=== PATIENT | female | born 1950 | race Caucasian/White ===

== ENCOUNTER → 2017-01-06 | Outpatient (CLI) | payer OTHER, MEDICARE ==
[~2017-01-06] MED LIST: ADVIN25050 PO; ALBU1AER9 INH; ASTN; ATV/1 SL; BUPR-267 PO; CARV25TA2 PO; CINN1CAP2 PO; LISI-461 PO; MOME50SP5 NAE; MRLP17 PO; ZNTT/150 PO
[2017-01-06 12:34] LABS: HEMATOCRIT 42.9 % (37-47); MEAN CELL VOLUME 93.1 fL (80-100); MEAN CORPUSCULAR HEMOGLOBIN 31.7 pg (25-34); MEAN PLATELET VOLUME 10.4 fL (7.4-10.4); PLATELET COUNT 285 K/uL (130-400); RED BLOOD COUNT 4.61 M/uL (4.2-5.4); WHITE BLOOD COUNT 6.81 K/uL (4.8-10.8)
[2017-01-06 14:22] LABS: ALT/SGPT 28 U/L (12-78); AMYLASE 34 U/L (25-115); AST/SGOT 25 U/L (15-37); BLOOD UREA NITROGEN 10 mg/dl (7-18); BUN/CREATININE RATIO 11.1 (10-20); CALCIUM 9.7 mg/dl (8.5-10.1); CARBON DIOXIDE 30 mmol/L (21-32); CHLORIDE 99 mmol/L (98-107); CREATININE 0.94 mg/dl (0.60-1.20); GLUCOSE 105 mg/dl (70-99); POTASSIUM 4.3 mmol/L (3.5-5.1); SODIUM 134 mmol/L (136-145)
[2017-01-06 14:24] LABS: ALB/GLOB RATIO 1.1 (0.9-2); ALKALINE PHOSPHATASE 97 U/L (45-117)
== END | disposition home or self-care (01) ==
LOC: C.LAB1850 10:57
PROVIDERS: ATTEND Physician Assistant
DX: K85.90 Acute pancreatitis without necrosis or infection, unspecified (principal)

== ENCOUNTER → 2017-12-31 | Outpatient (CLI) | payer OTHER, MEDICARE ==
[~2017-12-31] MED LIST changes: +ALBU18002 INH; -ALBU1AER9 INH; +ATOR-22 PO; +CARI250T PO; +GLC/500 PO; +HYDR-5688 PO; +HYDR25TA4 PO; -LISI-461 PO; +LISI-726 PO; -MOME50SP5 NAE; +MOME6000 NAE; +PRLSR20 PO; -ZNTT/150 PO
[2017-12-31 16:54] LABS: ALBUMIN 3.5 gm/dl (3.4-5.0); ALKALINE PHOSPHATASE 129 U/L (45-117); ALT/SGPT 26 U/L (12-78); AST/SGOT 19 U/L (15-37); BLOOD UREA NITROGEN 14 mg/dl (7-18); CALCIUM 9.2 mg/dl (8.5-10.1); CARBON DIOXIDE 27 mmol/L (21-32); CREATININE 0.92 mg/dl (0.60-1.20); GLUCOSE 106 mg/dl (70-99); LIPASE 118 U/L (73-393); SODIUM 127 mmol/L (136-145); TOTAL PROTEIN 7.2 gm/dl (6.4-8.2)
== END | disposition home or self-care (01) ==
LOC: C.LAB1850 15:07
PROVIDERS: ATTEND Internal Medicine
DX: K85.90 Acute pancreatitis without necrosis or infection, unspecified (principal)

== ENCOUNTER 2018-01-14 12:11 | Emergency (ER) | payer OTHER, MEDICARE ==
[~2018-01-14] VITALS: Ht 162.6 cm; Wt 75.1 kg
[2018-01-14 12:13] VITALS: TEMP 36.5; Ht 162.6 cm; Wt 75.1 kg
--- NOTE | 2018-01-14 12:39 | EMERGENCY ROOM VISIT NOTE ---
History Report prepared by Foster: Valerie Taylor Under the Supervision of: Dr. Tomas Bajwa M.D. First contact with patient: 12:30 Chief Complaint: SHORTNESS OF BREATH Stated Complaint: SOB, FLUID IN LEGS History of Present Illness The patient is a 67 year old female who presents to the Emergency Room with complaints of persistent bilateral leg swelling and chest discomfort that started over 2 weeks ago. The patient describes her chest discomfort as pressure and states it worsens with exertion. She states she had just got to [place] for vacation when her symptoms started but did not want to see a doctor. She denies abdominal pain. She states she has a history of high blood pressure. She notes she had a heart ablation in 1995. She reports she had a heart catheterization "a long time ago." Source of History: patient Onset: over 2 weeks ago Position: leg (bilateral) Quality: pressure Timing: other (persistent) Modifying Factors (Worsening): exertion Associated Symptoms: No abdominal pain Review of Systems See HPI for pertinent positives & negatives. A total of 10 systems reviewed and were otherwise negative. Past Medical & Surgical Medical Problems: (1) Acute pancreatitis (2) Basal cell carcinoma of face (3) Benign hypertension (4) DM (diabetes mellitus) (5) Gastroesophageal reflux disease (6) Pancreatitis (7) Percutaneous transluminal ablation of atrioventricular node (8) Ssius-Kpnkfshhp-Nfvep pattern Surgical Problems: (1) Appendectomy (2) C6-C7 fusion (3) Cholecystectomy (4) History of hysterectomy (5) Hysterectomy Family History Diabetes mellitus Heart disease Social History Smoking Status: Never Smoker Alcohol Use: none Marital Status: Housing Status: lives with family Occupation Status: retired Current/Historical Medications Scheduled Atorvastatin (Lipitor), 20 MG PO DAILY Bupropion Hcl (Bupropion Hcl Er), 150 MG PO DAILY Carvedilol (Coreg), 12.5 MG PO BID Cinnamon (Cinnamon), 1,000 MG PO DAILY Hydrochlorothiazide (Hctz), 25 MG PO DAILY Lisinopril (Lisinopril), 20 MG PO DAILY Metformin Hcl (Glucophage), 500 MG PO QAM Metformin Hcl (Glucophage), 1,000 MG PO QPM Mometasone Furoate (Nasal) (Mometasone Furoate), 2 SPRAYS SINDY DAILY Omeprazole (Prilosec), 20 MG PO HS Polyethylene (Miralax), 17 GM PO UD Scheduled PRN Albuterol Sulfate (Proair Respiclick), 2 PUFFS INH Q4H PRN for SOB/Wheezing Azelastine Hcl (Astelin Nasal [place]), 2 SPRAYS NA BID PRN Fluticasone Prop/Salmeterol (Advair Diskus 250-50 Mcg/Dose), 1 PUFF PO Q12 PRN for HUMIDITY Lorazepam (Ativan), 0.5 MG SL HS PRN for Insomnia Allergies Coded Allergies: Cephalosporins (Verified Allergy, Unknown, KEFLEX, 01/14/18) Oxycodone (Verified Adverse Reaction, Mild, ?PERCODAN -- HALLUCINATIONS, ) Replaces PERCODAN Pseudoephedrine (Verified Adverse Reaction, Mild, RAPID HEART, 01/14/18) Physical Exam Vital Signs Date Time Temp Pulse Resp B/P (MAP) Pulse Ox O2 Delivery O2 Flow Rate FiO2 01/14/18 16:31 77 16 160/106 97 01/14/18 16:08 68 01/14/18 15:30 77 20 166/103 98 Room Air 01/14/18 14:28 69 16 136/111 100 Room Air 01/14/18 12:13 36.5 67 18 178/108 100 Room Air Physical Exam GENERAL: Awake, alert, well-appearing, in no acute distress HENT: Normocephalic, atraumatic. Oropharynx unremarkable. EYES: Normal conjunctiva. Sclera non-icteric. NECK: Supple. No nuchal rigidity. FROM. No JVD. RESPIRATORY: Clear to auscultation. CARDIAC: Regular rate, normal rhythm. Extremities warm and well perfused. Pulses equal. ABDOMEN: Soft, non-distended. No tenderness to palpation. No rebound or guarding. No masses. RECTAL: Deferred. MUSCULOSKELETAL: Chest examination reveals no tenderness. The back is symmetrical on inspection without obvious abnormality. There is no CVA tenderness to palpation. No joint edema. LOWER EXTREMITIES: Calves are equal size bilaterally and non-tender. No edema. No discoloration. NEURO: Normal sensorium. No sensory or motor deficits noted. SKIN: No rash or jaundice noted. Medical Decision & Procedures ER Provider Diagnostic Interpretation: Radiology results as stated below per my review and radiologist interpretation: CHEST ONE VIEW PORTABLE CLINICAL HISTORY: CHEST PAIN dyspnea COMPARISON STUDY: 2018 FINDINGS: The bones soft tissues and hemidiaphragms are normal. The cardiomediastinal silhouette is normal. The lungs are clear. The pulmonary vasculature is normal. IMPRESSION: Negative chest. The above report was generated using voice recognition software. It may contain grammatical, syntax or spelling errors. Electronically signed by: Oscar Crow M.D. 01/14/2018 1:04 PM Dictated Date/Time: 01/14/2018 1:03 PM Laboratory Results 01/14/18 12:35 Red Blood Count 3.95, Mean Corpuscular Volume 93.2, Mean Corpuscular Hemoglobin 31.9, Mean Corpuscular Hemoglobin Concent 34.2, Mean Platelet Volume 9.5, Neutrophils (%) (Auto) 55.6, Lymphocytes (%) (Auto) 29.1, Monocytes (%) (Auto) 10.4, Eosinophils (%) (Auto) 4.3, Basophils (%) (Auto) 0.3, Neutrophils # (Auto ) 4.18, Lymphocytes # (Auto) 2.18, Monocytes # (Auto) 0.78, Eosinophils # (Auto ) 0.32, Basophils # (Auto) 0.02 01/14/18 12:35 Test 01/14/18 12:35 01/14/18 12:40 01/14/18 12:55 01/14/18 14:08 White Blood Count 7.50 K/uL (4.8-10.8) Red Blood Count 3.95 M/uL (4.2-5.4) Hemoglobin 12.6 g/dL (12.0-16.0) Hematocrit 36.8 % (37-47) Mean Corpuscular Volume 93.2 fL (80-100) Mean Corpuscular Hemoglobin 31.9 pg (25-34) Mean Corpuscular Hemoglobin Concent 34.2 g/dl (32-36) Platelet Count 282 K/uL (130-400) Mean Platelet Volume 9.5 fL (7.4-10.4) Neutrophils (%) (Auto) 55.6 % Lymphocytes (%) (Auto) 29.1 % Monocytes (%) (Auto) 10.4 % Eosinophils (%) (Auto) 4.3 % Basophils (%) (Auto) 0.3 % Neutrophils # (Auto) 4.18 K/uL (1.4-6.5) Lymphocytes # (Auto) 2.18 K/uL (1.2-3.4) Monocytes # (Auto) 0.78 K/uL (0.11-0.59) Eosinophils # (Auto) 0.32 K/uL (0-0.5) Basophils # (Auto) 0.02 K/uL (0-0.2) RDW Standard Deviation 45.9 fL (36.4-46.3) RDW Coefficient of Variation 13.6 % (11.5-14.5) Immature Granulocyte % (Auto) 0.3 % Immature Granulocyte # (Auto) 0.02 K/uL (0.00-0.02) Anion Gap 8.0 mmol/L (3-11) Est Creatinine Clear Calc Drug Dose 65.3 ml/min Estimated GFR () 84.6 Estimated GFR (Non- 73.0 BUN/Creatinine Ratio 15.6 (10-20) Calcium Level 8.9 mg/dl (8.5-10.1) Total Bilirubin 0.6 mg/dl (0.2-1) Direct Bilirubin 0.2 mg/dl (0-0.2) Aspartate Amino Transf (AST/SGOT) 27 U/L (15-37) Alanine Aminotransferase (ALT/SGPT) 42 U/L (12-78) Alkaline Phosphatase 97 U/L (45-117) Total Creatine Kinase 109 U/L (26-192) Creatine Kinase MB 1.5 ng/ml (0.5-3.6) Creatine Kinase MB Ratio 1.4 (0-3.0) Pro-B-Type Natriuretic Peptide 682 pg/ml (0-900) Total Protein 7.2 gm/dl (6.4-8.2) Albumin 3.6 gm/dl (3.4-5.0) Lipase 97 U/L (73-393) Urine Color YELLOW Urine Appearance CLEAR (CLEAR) Urine pH 7.5 (4.5-7.5) Urine Specific [place] 1.006 (1.000-1.030) Urine Protein NEG (NEG) Urine Glucose (UA) NEG (NEG) Urine Ketones NEG (NEG) Urine Occult Blood NEG (NEG) Urine Nitrite NEG (NEG) Urine Bilirubin NEG (NEG) Urine Urobilinogen NEG (NEG) Urine Leukocyte Esterase NEG (NEG) Bedside D-Dimer > 450 ng/mlFEU (0-450) Troponin I < 0.015 ng/ml (0-0.045) Labs reviewed by ED physician. Medications Administered Medications (Trade) Dose Ordered Sig/Benjamin Route Start Time Stop Time Status Last Admin Dose Admin Potassium Chloride (Klor-Con Tab) 40 meq NOW STAT PO 01/14/18 13:11 01/14/18 13:12 DC 01/14/18 14:10 40 MEQ Potassium Chloride (Klor-Con Tab) 40 meq NOW STAT PO 01/14/18 13:33 01/14/18 13:34 DC 01/14/18 13:33 40 MEQ ECG Per My Interpretation Indication: chest pain Rate (beats per minute): 70 Rhythm: sinus rhythm (with premature supraventricular complex) Findings: other (no ST elevation or depression) ED Course 1230: Past medical records reviewed. The patient was evaluated in room B10. A complete history and physical examination was performed. Medical Decision Differential diagnosis: Etiologies such as cardiac ischemia, aortic dissection, pulmonary embolism, pneumonia, pneumothorax, musculoskeletal, infections, pericarditis, myocarditis , esophageal rupture, gastrointestinal, as well as others were entertained. This is a 68-year-old female who presents emergency department complaining of chest pain that has been going on for the past 2 weeks any time the patient exerts herself. Serial EKGs as well as serial troponins were obtained in the emergency department and were found to be within normal limits with no changes. The patient was given potassium here in the emergency department. I discussed the patient's case with Dr. Chase to get the patient an outpatient stress test. The patient does not appear to be volume overloaded on chest x- ray. Her ultrasounds do not show any evidence of DVTs. Strongly suggested compression stockings for the patient's bilateral leg swelling. Patient will follow up here in the hospital tomorrow for a stress test. She agreed to no strenuous activity until that stress test. Medication Reconcilliation Current Medication List: was personally reviewed by me Impression Primary Impression: Chest pain Scribe Attestation The scribe's documentation has been prepared under my direction and personally reviewed by me in its entirety. I confirm that the note above accurately reflects all work, treatment, procedures, and medical decision making performed by me. Departure Information Dispostion Home / Self-Care Referrals Pro,Nasreen Valiente.D. (PCP) Patient Instructions My [facility] Problem Qualifiers Primary Impression: Chest pain Chest pain type: unspecified Qualified Codes: R07.9 - Chest pain, unspecified
[2018-01-14 12:46] LABS: BASO % 0.3 %; BASO ABS # 0.02 K/uL (0-0.2); EOS % 4.3 %; EOS ABS # 0.32 K/uL (0-0.5); HEMATOCRIT 36.8 % (37-47); HEMOGLOBIN 12.6 g/dL (12.0-16.0); IG# 0.02 K/uL (0.00-0.02); LYMPH % 29.1 %; LYMPH ABS # 2.18 K/uL (1.2-3.4); MEAN CELL VOLUME 93.2 fL (80-100); MEAN CORPUSCULAR HEMOGLOBIN 31.9 pg (25-34); MEAN CORPUSCULAR HGB CONC 34.2 g/dl (32-36); MEAN PLATELET VOLUME 9.5 fL (7.4-10.4); MONO % 10.4 %; MONO ABS # 0.78 K/uL (0.11-0.59); NEUT % 55.6 %; NEUT ABS # 4.18 K/uL (1.4-6.5); PLATELET COUNT 282 K/uL (130-400); RED CELL DISTRIBUTION WIDTH CV 13.6 % (11.5-14.5); RED CELL DISTRIBUTION WIDTH SD 45.9 fL (36.4-46.3)
--- NOTE | 2018-01-14 13:05 | DIAGNOSTIC IMAGING REPORT ---
CHEST ONE VIEW PORTABLE CLINICAL HISTORY: CHEST PAIN dyspnea COMPARISON STUDY: 2018 FINDINGS: The bones soft tissues and hemidiaphragms are normal. The cardiomediastinal silhouette is normal. The lungs are clear. The pulmonary vasculature is normal. IMPRESSION: Negative chest. The above report was generated using voice recognition software. It may contain grammatical, syntax or spelling errors. Electronically signed by: Oscar Crow M.D. 01/14/2018 1:04 PM Dictated Date/Time: 01/14/2018 1:03 PM
[2018-01-14 13:07] LABS: ALBUMIN 3.6 gm/dl (3.4-5.0); ALKALINE PHOSPHATASE 97 U/L (45-117); ALT/SGPT 42 U/L (12-78); AST/SGOT 27 U/L (15-37); BLOOD UREA NITROGEN 13 mg/dl (7-18); CALCIUM 8.9 mg/dl (8.5-10.1); CARBON DIOXIDE 29 mmol/L (21-32); CKMB 1.5 ng/ml (0.5-3.6); CREATININE 0.83 mg/dl (0.60-1.20); GLUCOSE 104 mg/dl (70-99); LIPASE 97 U/L (73-393); POTASSIUM 3.2 mmol/L (3.5-5.1); SODIUM 133 mmol/L (136-145); TOTAL PROTEIN 7.2 gm/dl (6.4-8.2)
[2018-01-14] MEDS ORDERED: GLC/500 PO (13:09)
[2018-01-14] MEDS ORDERED: POTASSIUM CHLORIDE 20 MEQ TABCR PO STA ×2 (13:11→13:33)
[2018-01-14] MEDS ORDERED: OPTIRAY 320 IV PRN (13:15)
--- NOTE | 2018-01-14 14:01 | DIAGNOSTIC IMAGING REPORT ---
BILATERAL LOWER EXTREMITY VENOUS DOPPLER CLINICAL HISTORY: Bilateral lower extremity swelling. COMPARISON STUDY: No previous studies for comparison. TECHNIQUE: Sonography of the deep venous system of the bilateral lower extremities was performed. Compression and augmentation were evaluated. FINDINGS: The bilateral common femoral, superficial femoral and popliteal veins were compressible. Augmentation was normal. Flow was shown within the deep calf vessels. IMPRESSION: No evidence of deep venous thrombus within the bilateral lower extremities. Electronically signed by: Faisal Ferreira M.D. 01/14/2018 1:59 PM Dictated Date/Time: 01/14/2018 1:53 PM
--- NOTE | 2018-01-14 15:42 | DIAGNOSTIC IMAGING REPORT ---
(CHEST FOR PE) ANGIO WITH CT DOSE: 252.75 mGy.cm HISTORY: Dyspnea chest pain TECHNIQUE: Multiaxial CT images of the chest were performed following the intravenous administration of contrast to evaluate the pulmonary arteries. Maximal intensity projection images were also obtained. A dose lowering technique was utilized adhering to the principles of ALARA. COMPARISON STUDY: None. FINDINGS: There is a normal caliber thoracic aorta with no evidence for dissection. There is no evidence for pulmonary embolus. No pleural effusions. No pneumothorax. The liver and spleen are unremarkable. No mediastinal or hilar lymphadenopathy. The central airways are patent. The lungs are clear. IMPRESSION: No evidence for pulmonary embolus. Slight bibasilar interstitial prominence. The above report was generated using voice recognition software. It may contain grammatical, syntax or spelling errors. Electronically signed by: Oscar Crow M.D. 01/14/2018 3:40 PM Dictated Date/Time: 01/14/2018 3:36 PM
[2018-01-14 16:31] VITALS: BP 160/106; PULSE 77; O2SAT 97
== END 2018-01-14 16:32 | disposition home or self-care (01) ==
LOC: C.EDB 12:12
DX: R07.9 Chest pain, unspecified (principal); I10 Essential (primary) hypertension; E11.9 Type 2 diabetes mellitus without complications; K21.9 Gastro-esophageal reflux disease without esophagitis; I45.6 Pre-excitation syndrome; Z88.8 Allergy status to other drugs, medicaments and biological substances; Z88.5 Allergy status to narcotic agent

== ENCOUNTER → 2018-01-15 | Outpatient (CLI) | payer OTHER, MEDICARE ==
[~2018-01-15] MED LIST changes: -CARI250T PO; -HYDR-5688 PO
--- NOTE | 2018-01-15 16:29 | EXERCISE STRESS ECHO ---
*NOTICE TO RECEIVING DEMOCRAT AGENCY This information is strictly Confidential and protected under [place] law. [place] law prohibits you from making any further disclosure of this information unless further disclosure is expressly permitted by the written consent of the person to whom it pertains or is authorized by law. A general authorization for the release of medical or other information is not sufficient for this purpose. Hospital accepts no responsibility if the information is made available to any other person, INCLUDING THE PATIENT. Interpretation Summary * Name: THEE HDEZ Study Date: 01/15/2018 08:58 AM BP: 148/96 mmHg * Patient Location: [facility] HR: 70 * : 1950 (M/d/yyyy) Gender: Female Height: 64 in * Age: 68 yrs Ethnicity: CA Weight: 161 lb * Ordering Physician: TYLER PEÑA MD * Performed By: Wanda Mckeon RCS * * Reason For Study: CHEST PAIN * BSA: 1.8 m2 * -- Conclusions -- * Left ventricular systolic function is normal. * Normal diastolic function * Mild aortic regurgitation. * There is mild to moderate mitral regurgitation. * Right ventricular systolic pressure is elevated at 30-40mmHg. * Normal stress echocardiogram without evidence of inducible ischemia * Hypertensive response to exercise Procedure Details * ECHOEX, CPT #[id number] * ECHO COLOR FLOW, CPT #[id number] * ECHO DOPPLER, CPT #[id number] Left Ventricular Findings with Stress * Normal stress echocardiogram without evidence of inducible ischemia Hypertensive response to exercise Left Ventricle * The left ventricle is normal in size. * There is normal left ventricular wall thickness. * Left ventricular systolic function is normal. * Ejection Fraction = 55-60%. * Normal diastolic function * The left ventricular wall motion is normal at rest. Right Ventricle * The right ventricle is normal in size and function. Atria * The left atrial size is normal. * Right atrial size is normal. Mitral Valve * The mitral valve leaflets appear thickened, but open well. * There is mild to moderate mitral regurgitation. * The mitral regurgitant jet is posteriorly directed, which is consistent with anterior leaflet pathology. Tricuspid Valve * The tricuspid valve is not well visualized, but is grossly normal. * There is trace tricuspid regurgitation. * Right ventricular systolic pressure is elevated at 30-40mmHg. Aortic Valve * The aortic valve is normal in structure and function. * The aortic valve is trileaflet. * No hemodynamically significant valvular aortic stenosis. * Mild aortic regurgitation. Pulmonic Valve * The pulmonic valve is not well visualized. Pericardium * There is no pericardial effusion. Stress Parameters * Normal baseline electrocardiogram. * Stress ECG: No ST changes. No arrhythmias. * The stress portion of this study was personally supervised by the undersigned interpreting physician. * Rest heart rate was '70' BPM. * Rest blood pressure was '148/96' * Maximum heart rate achieved was 151 bpm. * Maximum heart rate was 99 % of maximum age-predicted heart rate. * Maximum blood pressure was '207/116' * Total exercise time was '06:00' * Maximum exercise MET level achieved was '7.00' METS * Maximum treadmill speed was '2.50' miles per hour. * Maximum treadmill elevation was '12.00'% grade. Left Ventricular Findings with Stress * Baseline EKG was normal There were no significant ST or T-wave changes during exercise or recovery The baseline echocardiogram demonstrated preserved LV systolic function with normal wall motion There was normal augmentation of all segments without development of wall motion abnormalities at peak exertion [place] treadmill score:2 (moderate risk) MMode 2D Measurements and Calculations IVSd 0.85 cm IVSs 1.3 cm LVIDd 4.3 cm LVIDs 2.8 cm LVPWd 0.96 cm LVPWs 1.3 cm IVS/LVPW 0.89 FS 35.5 % EDV(Teich) 83.1 ml ESV(Teich) 28.9 ml EF(Teich) 65.2 % EDV(cubed) 79.6 ml ESV(cubed) 21.4 ml EF(cubed) 73.2 % % IVS thick 57.5 % % LVPW thick 37.8 % LV mass(C)d 124.2 grams LV mass(C)dI 69.6 grams/m\S\2 LV mass(C)s 116.5 grams LV mass(C)sI 65.3 grams/m\S\2 SV(Teich) 54.2 ml SI(Teich) 30.4 ml/m\S\2 SV(cubed) 58.2 ml SI(cubed) 32.6 ml/m\S\2 Ao root diam 3.4 cm Ao root area 9.3 cm\S\2 ACS 1.9 cm LA dimension 3.3 cm LA/Ao 0.96 LVOT diam 2.0 cm LVOT area 3.1 cm\S\2 LVAd ap4 16.7 cm\S\2 LVLd ap4 5.6 cm EDV(MOD-sp4) 42.2 ml EDV(sp4-el) 42.5 ml LVAs ap4 10.9 cm\S\2 LVLs ap4 4.5 cm ESV(MOD-sp4) 22.3 ml ESV(sp4-el) 22.6 ml EF(MOD-sp4) 47.2 % EF(sp4-el) 46.9 % LVAd ap2 19.8 cm\S\2 LVLd ap2 6.0 cm EDV(MOD-sp2) 54.1 ml EDV(sp2-el) 55.1 ml LVAs ap2 11.7 cm\S\2 LVLs ap2 4.6 cm ESV(MOD-sp2) 24.8 ml ESV(sp2-el) 25.3 ml EF(MOD-sp2) 54.1 % EF(sp2-el) 54.1 % LVLd %diff 7.6 % EDV(MOD-bp) 49.8 ml LVLs %diff 3.4 % ESV(MOD-bp) 24.0 ml EF(MOD-bp) 51.7 % SV(MOD-sp4) 19.9 ml SI(MOD-sp4) 11.2 ml/m\S\2 SV(MOD-sp2) 29.2 ml SI(MOD-sp2) 16.4 ml/m\S\2 SV(MOD-bp) 25.7 ml SI(MOD-bp) 14.4 ml/m\S\2 SV(sp4-el) 19.9 ml SI(sp4-el) 11.2 ml/m\S\2 SV(sp2-el) 29.8 ml SI(sp2-el) 16.7 ml/m\S\2 Doppler Measurements and Calculations MV E max jessica 108.4 cm/sec MV A max jessica 103.0 cm/sec MV E/A 1.1 MV P1/2t max jessica 118.5 cm/sec MV P1/2t 75.8 msec MVA(P1/2t) 2.9 cm\S\2 MV dec slope 457.6 cm/sec\S\2 MV dec time 0.17 sec MR max jessica 566.7 cm/sec MR max PG 129.1 mmHg PA V2 max 57.4 cm/sec PA max PG 1.3 mmHg TR max jessica 265.5 cm/sec
== END | disposition home or self-care (01) ==
LOC: C.CPL 08:27
PROVIDERS: ATTEND Emergency Medicine
DX: R07.9 Chest pain, unspecified (principal)

== ENCOUNTER 2019-04-27 16:51 | Inpatient (IN) ==
[2019-04-27] MEDS ORDERED: ONDANSETRON INJ 2 MG/ML 2 ML VIAL IV STA (17:08)
[2019-04-27] MEDS ORDERED: MoRPHine SULFATE 4 MG/ML 1 ML CARP\\VIAL IV STA ×2 (17:08→18:57)
[2019-04-27] MEDS ORDERED: SODIUM CHLORIDE 0.9% 1000ML 1,000 ML IV ONE (17:08)
--- NOTE | 2019-04-27 18:05 | Emergency Department Note ---
Entered by Sophia Rosas acting as a scribe for History of Present Illness General Chief complaint: Abnormal Labs/Diagnostic Testing Stated complaint: CT SCAN SHOWED PANCREATITIS Time Seen by Provider: 04/27/19 16:58 History of Present Illness Provider complaint: abnormal imaging Onset (ago): hour(s) 2 Radiation: other (chest) Pain Consistency: + other (episode) Maximum Pain Intensity: 9 Quality: + other (abnormal imaging) Associated symptoms: + other (CT showed pancreatitis, intermittent epigastric pain for 2 weeks, severe epigastric pain for 2 days, had pancreatitis 3 years ago) The patient is a 69 year old female who presents to the ED with complaints of an episode of abnormal imaging from 2 hours ago. The patient states that she saw her PCP today and was informed that she has pancreatitis after a CT was done. The patient states that she has had 2 weeks of intermittent epigastric pain, but severe epigastric pain for 2 days. The patient states that her pain radiates up into her chest. The patient states that she had pancreatitis 3 years ago but this episode feels slightly different. Home Medications Home Medications Medication Instructions Recorded Confirmed Type lorazepam 1 mg tablet 0.5 - 1 mg PO HS PRN tab 12/15/18 04/27/19 History omeprazole 20 mg tablet,delayed 20 mg PO DAILY #28 tab 12/15/18 04/27/19 History release bupropion HCl 150 mg 24 hr tablet, 150 mg PO DAILY #90 tab 02/21/19 04/27/19 Rx extended release hydrochlorothiazide 25 mg tablet 25 mg PO DAILY #90 tab 02/21/19 04/27/19 Rx lisinopril 20 mg tablet 20 mg PO DAILY #90 tab 02/21/19 04/27/19 Rx potassium chloride 20 mEq 20 meq PO DAILY #90 tab 02/21/19 04/27/19 Rx tablet,extended release albuterol sulfate 90 mcg/actuation 2 puffs INHALATION Q4H PRN gm 04/15/19 04/27/19 History aerosol inhaler atorvastatin 20 mg tablet 10 mg PO QPM #90 tab 04/21/19 04/27/19 History cinnamon bark 500 mg capsule 1,000 mg PO DAILY cap 04/21/19 04/27/19 History fluticasone 250 mcg-salmeterol 50 1 puffs INHALATION Q12H #1 ea 04/21/19 04/27/19 History mcg/dose blistr powdr for inhalation metformin 500 mg tablet 1,000 mg PO BID tab 04/21/19 04/27/19 History carvedilol 25 mg PO BID 04/27/19 04/27/19 History Allergies Allergy/AdvReac Type Severity Reaction Status Date / Time Cephalosporins Allergy Unknown KEFLEX Verified 04/27/19 17:27 cephalexin [From Keflex] Allergy Verified 04/27/19 17:27 pseudoephedrine AdvReac Mild RAPID HEART Verified 04/27/19 17:27 Past Med/Surg History Medical History (Updated 04/27/19 @ 18:05 by Tomas Desai DO) Cervical disc herniation (Inactive) Cervical radiculopathy (Inactive) Depression (Acute) DM (diabetes mellitus) (Chronic) Dyslipidemia Epigastric abdominal pain (Inactive) GERD (gastroesophageal reflux disease) (Acute 05/30/12) Gout H/O: hysterectomy Hypertension Mitral regurgitation Pancreatitis (Resolved) Rgzjx-Vsaxthwtz-Vpnje syndrome Surgical History H/O heart surgery History of appendectomy Hx of cholecystectomy Hx of salpingo-oophorectomy, bilateral S/P hysterectomy Social History Preferred Language: Occitan Communication Ability: Effective Visual Impairment: No Limitations Hearing Ability: Normal 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 and A total of 10 systems reviewed and were otherwise negative Physical Exam Vital Signs Vital Signs - 24 hr 04/27/19 16:54 04/27/19 17:24 Temperature 36.7 C Temperature Source Oral Pulse Rate 81 77 Pulse Rhythm Regular Pulse Strength Normal Respiratory Rate 22 16 Respiratory Effort / Characteristics Non-Labored Spontaneous Respiratory Depth Normal Respiratory Pattern Regular Blood Pressure 160/106 H 159/98 H Blood Pressure Mean 124 118 Blood Pressure Position Sitting Pulse Oximetry 100 99 Oxygen Delivery Method Room Air Room Air Sepsis Recent Fever Within 48 Hours No Sepsis New/Unexplained Change in Mental Status No Sepsis Action Taken by Nursing No Action Required CONSTITUTIONAL/VITAL SIGNS: Reviewed / noted above. GENERAL: Non-toxic in appearance. INTEGUMENTARY: Warm, dry, and Ila. HEAD: Normocephalic. EYES: without scleral icterus or trauma. ENT/OROPHARYNX: clear and moist. LYMPHADENOPATHY/NECK: Is supple without lymphadenopathy or meningismus. RESPIRATORY: Lungs clear and equal. CARDIOVASCULAR: Regular rate and rhythm. GI/ABDOMEN: Soft. Tenderness to palpation of epigastric area. No organomegaly or pulsatile mass. No rebound or guarding. Normal bowel sounds. EXTREMITIES: Warm and well perfused. BACK: No CVA tenderness. NEUROLOGICAL: Intact without focal deficits. PSYCHIATRIC: normal affect. MUSCULOSKELETAL: Normally developed with good muscle tone. Course Course 1703: Past medical records reviewed. The patient was evaluated in room A4. A complete history and physical exam was performed. 1738: I discussed the patient's case with Dr. Logan [facility] Hospitalist. She will evaluate the patient for further management. Consultations Consultation #1: I discussed the patient's case with Dr. Logan [facility] Hospitalist. She will evaluate the patient for further management. Time: 17:39 Administered Medications Sodium Chloride (Nss 1000ml) 1,000 mls @ 999 mls/hr IV .Q1H1M ONE Stop: 04/27/19 18:08 Last Admin: 04/27/19 17:18 Dose: 999 mls/hr Documented by: [id number] Discontinued Medications Morphine Sulfate (Morphine Sulfate) 4 mg IV NOW STA Stop: 04/27/19 17:09 Last Admin: 04/27/19 17:19 Dose: 4 mg Documented by: [id number] Ondansetron HCl (Zofran) 4 mg IV NOW STA Stop: 04/27/19 17:09 Last Admin: 04/27/19 17:18 Dose: 4 mg Documented by: [id number] Medical Decision Making Differential Diagnosis Differential diagnosis: Etiologies such as biliary colic, cholecystitis, hepatitis, perihepatitis, pancreatitis, cardiac disease, pancreatitis, gastritis, peptic ulcer disease, appendicitis, ovarian cyst, ovarian torsion, pelvic inflammatory disease, cystitis, diverticulitis, mesenteric ischemia, inflammatory bowel disease, ileus, bowel obstruction, aortic pathology, shingles, as well as others were considered. Medical Records Attestation: I reviewed the patient's medical records. Home Medications Current Medication List: was personally reviewed by me Laboratory Data Count is 11.9. Complete metabolic panel was unremarkable. Lipase is 430. Imaging Data Radiologist's Impression: OUTPATIENT CT 04/27/2019 CT abd pelvis oral and IV con CLINICAL HISTORY: 69 years-old Female presenting with R10.13 Epigastric pain, history of pancreatitis. TECHNIQUE: Multidetector CT of the abdomen and pelvis was performed after the administration of oral and intravenous contrast. IV contrast: 93 mL of Optiray 320. One or more dose lowering techniques were used consistent with the principles of ALARA (as low as reasonably achievable), including automatic exposure control, mA or kV adjustment to individual patient size, and/or use of iterative reconstruction. COMPARISON: 10/24/2014. CT DOSE (mGy.cm): The estimated cumulative dose is 525.98 mGy.cm. 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 Lung bases: Normal heart size. No pericardial or pleural effusion. No focal infiltrate or nodule at the lung bases. Liver: Normal morphology. No liver lesion. Patent hepatic vasculature. Biliary: No intrahepatic or extrahepatic biliary ductal dilatation. Gallbladder surgically absent. Pancreas: Severe parenchymal atrophy though there is some residual parenchyma at the pancreatic tail and head. There is also mild peripancreatic fat infiltration along the pancreatic neck and body. No focal fluid collection. Spleen: Normal. Splenule noted. Adrenal glands: Normal. Kidneys and ureters: Normal. No hydronephrosis. Bladder: Focus of gas within the lumen may relate to recent catheterization. Bladder otherwise normal. Pelvic organs: Uterus surgically absent. Bowel: Mild diverticulosis of the proximal sigmoid and distal descending colon without wall thickening or pericolonic inflammatory change. The appendix is not visualized. No bowel obstruction. Trace sliding type hiatal hernia. Peritoneal cavity: No free fluid or intraperitoneal gas. Lymph nodes: No enlarged lymph nodes in the abdomen or pelvis. Vasculature: Aorta and IVC patent and normal in caliber. Abdominal wall: Normal. Musculoskeletal: Degenerative changes of the spine. IMPRESSION: 1. Severe lipomatous replacement of the pancreas/pancreatic parenchymal atrophy with possible superimposed interstitial edematous pancreatitis. Correlate with lipase. No acute peripancreatic fluid collection. 2. Status post cholecystectomy. 3. Mild diverticulosis coli. No diverticulitis. Electronically signed by: Micha Cisneros M.D. 04/27/2019 4:05 PM Blood Pressure Blood Pressure Findings: Elevated blood pressure Blood Pressure Disposition: further management by hospitalist MDM Narrative This is a 69-year-old female who presents to the ED with a chief complaint of epigastric abdominal pain for the past 2 days. She is also had some off-and-on pain for couple of weeks. She has history of previous pancreatitis. She states that her last bout of pancreatitis was several years ago. The patient had outpatient testing including a CBC. The white blood cell count was 11.9. Complete metabolic panel was unremarkable. A CT scan of the abdomen pelvis reveals severe lipomatous replacement of the pancreas with possible superimposed edematous pancreatitis. Lipase today was 430. I spoke with the hospitalist who will see the patient for inpatient evaluation and care. She was treated with IV Zofran as well as IV fluids and IV morphine. Impression & Plan Pancreatitis, Abdominal pain, acute, epigastric Discharge Plan Visit Data Chief Complaint: Abnormal Labs/Diagnostic Testing Stated Complaint: CT SCAN SHOWED PANCREATITIS ED Provider: Tomas Desai Discharge Problem: Pancreatitis, Abdominal pain, acute, epigastric Patient Disposition: Being Evaluated by Hospitalist Forms Stand Alone Forms: [facility] Prescriptions Prescriptions: No Action bupropion HCl 150 mg tablet extended release 24 hr 150 mg PO DAILY Qty: 90 RF: 3 hydrochlorothiazide 25 mg tablet 25 mg PO DAILY Qty: 90 RF: 3 lisinopril 20 mg tablet 20 mg PO DAILY Qty: 90 RF: 3 potassium chloride 20 mEq tablet extended release 20 meq PO DAILY Qty: 90 RF: 3 lorazepam 1 mg tablet 0.5 - 1 mg PO HS PRN (Reason: sleep) RF: 0 omeprazole 20 mg tablet,delayed release (DR/EC) 20 mg PO DAILY Qty: 28 RF: 0 albuterol sulfate 90 mcg/actuation HFA aerosol inhaler 2 puffs inhalation Q4H PRN (Reason: shortness of breath) RF: 0 cinnamon bark 500 mg capsule 1,000 mg PO DAILY RF: 0 fluticasone propion-salmeterol 250-50 mcg/dose blister with device 1 puffs inhalation Q12H Qty: 1 RF: 0 metformin 500 mg tablet 1,000 mg PO BID RF: 0 atorvastatin 20 mg tablet 10 mg PO QPM Qty: 90 RF: 0 carvedilol 12.5 mg tablet 25 mg PO BID RF: 0 Referrals Referrals: ,eGne Watt MD [Primary Care Provider] - Discharge Problem: Pancreatitis Qualifiers: Chronicity: acute Pancreatitis type: unspecified pancreatitis type Acute pancreatitis complication: unspecified Qualified Code(s): K85.90 - Acute pancreatitis without necrosis or infection, unspecified The scribe's documentation has been prepared under my direction and personally reviewed by me in its entirety. I confirm that the note above accurately reflects all work, treatment, procedures, and medical decision making performed by me.
--- NOTE | 2019-04-27 19:21 | History & Physical Report ---
Date of Service April 27, 2019 Assessment & Plan (1) Pancreatitis: - 69 yo F with a PMH of HTN, dyslipidemia, type II DM, asthma, Zfxfm-Iclkoqonr-Ggwlt, mitral regurgitation, esophageal reflux, gastroparesis, cervical radiculopathy, insomnia, and depression who presents due to abdominal p ain consistent w/ acute recurrent idiopathic pancreatitis. - epigastric abdominal pain traveling to the back - Lipase 420 - Unclear etiology possibly due to HCTZ vs. more likely idiopathic given no r ecent changes in medication or dose - abdominal pain may be a mixed picture given history GERD and gastroparesis due to DM - CT w/ findings of: Severe lipomatous replacement of the pancreas/pancreatic parenchymal atrophy with possible superimposed interstitial edematous pancreatitis - NPO, advance diet as tolerated - NS 80 mL/hr. 2L, history of fluid overload in the past - AM lipase, CBC, CMP, PT/INR, - ordered MRCP, patient does not have a pacemaker - PRN Morphine for pain control (2) Abdominal pain, acute, epigastric: (3) GERD (gastroesophageal reflux disease): - currently complaining of indigestion - Continue home Omeprazole [address] (4) Dyslipidemia: - Continue home Atorvastatin (5) DM (diabetes mellitus): - Taking 2000 mg metformin at home DC - ordered ISS (6) Hypertension: - BP 159/98 - DCd HCTZ due to potential etiology of pancreatitis - Started Amlodipine 10 mg PO daily - Continue home Lisinopril 20 mg PO daily and Coreg. 25 BID - Continue to monitor (7) Mitral regurgitation: (8) Fjlmz-Txgkwukor-Isgjj syndrome: - History of percutaneous transluminal ablation of AV node in 1995 (9) Stress incontinence in female: (10) Gastroparesis due to DM: (11) Asthma: - currently asymptomatic - Continue home Albuterol PRN for shortness of breath - Advair Q12 Code: full DVT: Diet: NPO, advance as tolerated Dispo: med/surg w/ tele History of Present Illness Chief Complaint: Abdominal pain Primary Care Provider: Gene Rogers MD Flaquita is a 69 y/o F with a PMH of HTN, dyslipidemia, type II DM, asthma, Nwgkw-Ivpfvemyu-Yhhbc, mitral regurgitation, esophageal reflux, gastroparesis, cervical radiculopathy, depression and recurrent idiopathic pancreatitis who presents with abdominal pain. The pain has been going on for a couple of weeks off and on but in the last 2 days it has gotten much worse and is constant 5-6/10. States it feels like someone has hot coals on her abdomen or someone is sticking her with a hot poker. Mostly epigastric pain. Feels bloated by the end of the day. She cannot eat - she gets bloated and sick, the pain worsens somewhat. States she "is hungry but also not hungry." States she has been getting cold but woke up last night drenched in sweat. The pain radiates to her back - states she has a history of pancreatitis. She was seen at [facility] by Dr. Mishra a pancreatic specialist who was unable to identify what was causing her to have pancreatitis. The last episode was approximately 3 years ago and she was seen by Dr. Alfred here. In reviewing the potential causes of pancreatitis with Ms. Vera she has had her gallbladder removed when she was 26 years old, she has not drank over the last year, she has no history of autoimmune disease, her brother has had one episode of pancreatitis, but no other family history, she is unsure if she has elevated TAG, [place] thinks that it is unlikely that she has been exposed to toxins. She is taking HCTZ, Lisinopril, and a Statin that are listed as possible pancreatitis etiologies, although she has not had any medication changes lately. She has not been stung by a scorpion and has not ingested methanol. Mentioned that she had cystocele bladder repair 5 weeks prior that has been healing well. Allergies Allergy/AdvReac Type Severity Reaction Status Date / Time Cephalosporins Allergy Unknown KEFLEX Verified 04/27/19 17:27 cephalexin [From Keflex] Allergy Verified 04/27/19 17:27 pseudoephedrine AdvReac Mild RAPID HEART Verified 04/27/19 17:27 Home Medications Home Medications Medication Instructions Recorded Confirmed Type lorazepam 1 mg tablet 0.5 - 1 mg PO HS PRN tab 12/15/18 04/27/19 History omeprazole 20 mg tablet,delayed 20 mg PO DAILY #28 tab 12/15/18 04/27/19 History release bupropion HCl 150 mg 24 hr tablet, 150 mg PO DAILY #90 tab 02/21/19 04/27/19 Rx extended release hydrochlorothiazide 25 mg tablet 25 mg PO DAILY #90 tab 02/21/19 04/27/19 Rx lisinopril 20 mg tablet 20 mg PO DAILY #90 tab 02/21/19 04/27/19 Rx potassium chloride 20 mEq 20 meq PO DAILY #90 tab 02/21/19 04/27/19 Rx tablet,extended release albuterol sulfate 90 mcg/actuation 2 puffs INHALATION Q4H PRN gm 04/15/19 04/27/19 History aerosol inhaler atorvastatin 20 mg tablet 10 mg PO QPM #90 tab 04/21/19 04/27/19 History cinnamon bark 500 mg capsule 1,000 mg PO DAILY cap 04/21/19 04/27/19 History fluticasone 250 mcg-salmeterol 50 1 puffs INHALATION Q12H #1 ea 04/21/19 04/27/19 History mcg/dose blistr powdr for inhalation metformin 500 mg tablet 1,000 mg PO BID tab 04/21/19 04/27/19 History carvedilol 25 mg PO BID 04/27/19 04/27/19 History Past Med/Surg History Medical History (Updated 04/27/19 @ 22:15 by Azam Freeman MD) Cervical disc herniation (Inactive) Cervical radiculopathy (Inactive) Depression (Acute) DM (diabetes mellitus) (Chronic) Dyslipidemia Epigastric abdominal pain (Inactive) GERD (gastroesophageal reflux disease) (Acute 05/30/12) Gout Hypertension Mitral regurgitation Pancreatitis (Resolved) Mngts-Dsinyxnmf-Khjba syndrome Surgical History H/O heart surgery H/O: hysterectomy History of appendectomy Hx of cholecystectomy Hx of salpingo-oophorectomy, bilateral S/P hysterectomy Social History Preferred Language: Estonian Communication Ability: Effective Visual Impairment: No Limitations Hearing Ability: Normal 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 Beliefs That Will Affect Care: None marital status: Current Living Situation: Spouse current occupational status: retired Other Information That Helps Us Care for You: No Feels Safe at Home: Yes Safety Concerns: Feels Safe At This Time Smoking Status: Never smoker Second Hand Exposure: No ; Hx Alcohol Use: Yes Alcohol type: wine Alcohol Intake Frequency: Rarely Hx Substance Use: No Childhood Exposure to Second-Hand Smoke: Yes (FATHER) Seatbelt Use: always Review of Systems Constitutional: + chills and + sweats (at night); no fever Respiratory: no cough and no wheezing Denies shortness of breath Cardiovascular: + palpitations; no chest pain Gastrointestinal: + abdominal pain, + belching, + early satiety, + heartburn, + nausea and + diarrhea/loose stools (in the mornings); no vomiting and no constipation Neurologic: no falls, no tingling, no paresthesia, no syncope, no headache(s) and no abnormal speech Hematologic / Lymphatic: + night sweats; no easy bleeding Physical Exam Constitutional: well developed and + well hydrated Eyes: PERRL, conjunctivae normal, anicteric sclerae ENMT: external ear and nose normal, oropharynx normal Neck: normal visual inspection Respiratory: normal respiratory effort, lungs clear to auscultation Cardiovascular: Rate/Rhythm: regular rate and regular rhythm Heart Sounds: + murmur (hollow systolic murmur ) Gastrointestinal (Abdomen): Inspection/Auscultation: + abdomen distended Percussion/Palpation: abdomen nontender, no guarding, abdomen not rigid and no hepatosplenomegaly Musculoskeletal: no cyanosis or clubbing, extremities motor strength 5/5 Skin: no rashes, warm and dry Neurologic: Speech / Cognition: normal speech Motor/Sensory: no tremor Psychiatric: Orientation: alert and oriented x 3 Speech: normal rate/rhythm/volume of speech Affect: + anxious affect Results & Data Vital Signs (Past 12 Hours) Vital Signs Temp Pulse Pulse Resp BP BP Pulse Ox 04/27/19 19:04 70 16 153/102 H 99 04/27/19 18:31 64 18 99 04/27/19 18:30 70 16 167/111 H 99 04/27/19 18:01 69 19 100 04/27/19 18:00 68 30 H 156/107 H 100 04/27/19 17:31 71 22 98 04/27/19 17:30 72 26 H 141/89 H 98 04/27/19 17:27 72 19 99 04/27/19 17:24 77 16 159/98 H 99 04/27/19 17:16 69 16 159/98 H 99 04/27/19 16:54 36.7 C 81 22 160/106 H 100 Code Status & VTE Plan Code Status Full code Supervising Physician Co-Signing Physician Notes I have seen and examined pt with and agree with exam assessment and plan. Resident Activity Tracking Resident Involvement: Resident Care Provided Care Provided: Adult Hospital Medicine (1) Pancreatitis Acute pancreatitis complication: unspecified Chronicity: acute Pancreatitis type: unspecified pancreatitis type Qualified Code(s): K85.90 - Acute pancreatitis without necrosis or infection, unspecified
[2019-04-27] MEDS ORDERED: MAGNESIUM HYDROXIDE SUSP 30 ML UDC PO PRN (19:44)
[2019-04-27] MEDS ORDERED: ALBUTEROL HFA 8 GM INHALER INH PRN (19:44)
[2019-04-27] MEDS ORDERED: DEXTROSE 50% 50 ML SYRINGE IV PRN (19:44)
[2019-04-27] MEDS ORDERED: LORazepam 1 MG TAB PO PRN (19:44)
[2019-04-27] MEDS ORDERED: GLUCOSE 10 TABS/TUBE PO PRN (19:44)
[2019-04-27] MEDS ORDERED: ALUMINUM/MAGNESIUM SUSP 30 ML UDC PO PRN (19:44)
[2019-04-27] MEDS ORDERED: GLUCOSE 40% GEL 15 GM TUBE PO PRN (19:44)
[2019-04-27] MEDS ORDERED: ONDANSETRON INJ 2 MG/ML 2 ML VIAL IV PRN (19:44)
[2019-04-27] MEDS ORDERED: POLYETHYLENE (MIRALAX) 17 GM PACK PO PRN (19:44)
[2019-04-27] MEDS ORDERED: GLUCAGON FOR INJ 1 MG VIAL SQ PRN (19:44)
[2019-04-27] MEDS ORDERED: CARBOHYDRATES FOR HYPOGLYCEMIA PO PRN (19:44)
[2019-04-27] MEDS ORDERED: ZOLPIDEM TARTRATE 5 MG TAB PO PRN (19:44)
[2019-04-27] MEDS: LACTATED RINGER'S 1,000 ML IV SCH (20:14)
[2019-04-27] MEDS ORDERED: PHARMACY GLYCEMIC MGMT CONSULT PRN (20:24)
[2019-04-27] MEDS: PROMETHAZINE HCL 25 MG in SODIUM CHLORIDE 0.9% 50 ML IV PRN (21:15)
[2019-04-27] MEDS: FLUTICASONE/SALMETEROL 250/50 (ADVAIR) 14 PUFF/1 INHALER INH SCH ×2 (21:17→21:20)
--- NOTE | 2019-04-27 21:17 | Magnetic Resonance Report ---
Study: MRCP HISTORY: Pancreatitis. Comparison. 01/07/2014 FINDINGS: The liver and spleen demonstrate uniform signal characteristics. No findings of infiltrative change surrounding components of the pancreatic head and uncinate process . This appearance suggests focal pancreatitis. No evidence for drainable abscess or collection. Bowel pattern of the upper abdomen is unremarkable. There is perhaps slight reactive wall edema of th e second components of the third duodenal sweep. Kidneys are negative for hydronephrosis. There are several small renal cysts measuring less than 7 mm . No significant upper abdominal adenopathy. All major venous and arterial structures appear to be quiñones nt. IMPRESSION: 1. Mild pancreatitis with mild infiltrative change surrounding the pancreatic head and uncinate proce ss. 2. Mild reactive wall edema of the duodenal sweep involving the second and components of the proximal third portion. 3. No evidence for bowel distention or gastric distention. 4. Normal MRCP 5. No evidence for filling defects. Prior cholecystectomy. Electronically signed by: Oscar Crow M.D. 04/27/2019 9:15 PM
[2019-04-27] MEDS: ATORVASTATIN 10 MG TAB PO SCH (21:18)
[2019-04-27] MEDS: carvediloL 25 MG TAB PO SCH (21:19)
[2019-04-28] MEDS: ACETAMINOPHEN 325 MG TAB PO PRN ×2 (02:47→07:46)
[2019-04-28 05:49] LABS: Basophils # (auto) 0.02 K/uL (0-0.2); Basophils % (auto) 0.2 %; Eosinophils % (auto) 1.7 %; Hemoglobin 11.9 g/dL (12.0-16.0); Immature Granulocytes # (auto) 0.02 K/uL (0.00-0.02); Immature Granulocytes % (auto) 0.2 %; Lymphocytes # (auto) 1.23 K/uL (1.2-3.4); Lymphocytes % (auto) 10.5 %; Mean Corpuscular Hemoglobin 32.2 pg (25-34); Mean Corpuscular Volume 91.9 fL (80-100); Monocytes # (auto) 1.04 K/uL (0.11-0.59); Monocytes % (auto) 8.9 %; Neutrophils # (auto) 9.21 K/uL (1.4-6.5); Neutrophils % (auto) 78.5 %; Platelet Count 242 K/uL (130-400); RDW Coefficient of Variation 12.7 % (11.5-14.5); RDW Standard Deviation 42.8 fL (36.4-46.3); White Blood Count 11.72 K/uL (4.8-10.8)
[2019-04-28 06:00] LABS: INR 1.1 (0.9-1.1); Prothrombin Time 10.8 Seconds (9.0-12.0)
[2019-04-28 06:22] LABS: Albumin Level 3.2 gm/dl (3.4-5.0); BUN Creatinine Ratio 16.4 (10-20); Calcium 8.8 mg/dl (8.5-10.1); Creatinine Clr Calc Pharmacy 68.8 ml/min; Est GFR (African American) 92.8; Potassium 3.7 mmol/L (3.5-5.1)
[2019-04-28 06:26] LABS: Albumin Globulin Ratio 0.9 (0.9-2); Bilirubin,Total 0.9 mg/dl (0.2-1); Globulin 3.4 gm/dl (2.5-4.0); Total Protein 6.6 gm/dl (6.4-8.2)
[2019-04-28] MEDS: MoRPHine SULFATE 2 MG/ML CARP IV PRN ×4 (07:47→20:47)
[2019-04-28] MEDS: AMLODIPINE BESYLATE 5 MG TAB PO SCH (08:19)
[2019-04-28] MEDS: POTASSIUM CHLORIDE 20 MEQ TABCR PO SCH (08:19)
[2019-04-28] MEDS: PANTOprazole 40 MG TAB PO SCH (08:19)
[2019-04-28] MEDS: BuPROPion XL 150 MG TABCR PO SCH (08:19)
[2019-04-28] MEDS: carvediloL 25 MG TAB PO SCH ×2 (08:19→20:49)
[2019-04-28] MEDS: lisinopriL 20 MG TAB PO SCH (08:19)
[2019-04-28] MEDS: INSULIN ASPART 100 UNITS/ML 3 ML PEN SC SCH ×5 (08:20→18:46)
[2019-04-28] MEDS: FLUTICASONE/SALMETEROL 250/50 (ADVAIR) 14 PUFF/1 INHALER INH SCH ×2 (08:20→20:49)
[2019-04-28] MEDS ORDERED: INFLUENZA ADMINISTRATION CHARGE ONE (08:30)
[2019-04-28] MEDS ORDERED: INFLUENZA VACCINE HIGH DOSE 65+ 0.5 ML SYR IM ONE (08:30)
[2019-04-28] MEDS: LACTATED RINGER'S 1,000 ML IV SCH ×4 (09:37→20:57)
[2019-04-28] MEDS ORDERED: MoRPHine SULFATE 4 MG/ML 1 ML CARP\\VIAL IV STA (12:35)
--- NOTE | 2019-04-28 15:19 | Pharmacy Report ---
Pharmacy Glycemic Short Note 2 - Date of Service April 28, 2019 - Glycemic Short BSG Results (Last 24 hours): 04/28/19 04/28/19 04/28/19 00:09 05:19 11:36 Glucose 137 H POC Glucose 143 H 193 H OUTPATIENT ANTIDIABETIC REGIMEN: * Metformin 2gm PO daily * HbA1c: 6.3% (04/26/19) ASSESSMENT: * Ms Vera is a 69yo diabetic admitted with pancreatitis. * Patient is currently NPO. * Novolog added yesterday to provide correction. Will consider adding small basal dose if BSGs become consistently elevated. PLAN FOR INPATIENT GLYCEMIC CONTROL: * Hold outpatient oral diabetes medications * Basal insulin * consider adding tomorrow if BSGs become persistently elevated * Bolus insulin * NovoLog per scale ACHS or Q6hrs while NPO * Goal Range: Low 110 mg/dL - High 140 mg/dL * Correction Factor: 30 mg/dL/unit * Nutritional / Prandial insulin per carb ratio of 1 unit per 15 grams CHO consumed PLAN FOR DISCHARGE: * A1c (6.3%) indicates good glycemic control as an outpatient. * Expect that pt may resume home regimen on discharge.
--- NOTE | 2019-04-28 15:37 | Hospitalist Progress Note ---
Date of Service April 28, 2019 Assessment & Plan (1) Pancreatitis: 69 yo F with a PMH of HTN, dyslipidemia, type II DM, asthma, WPW Syndrome, mitral regurgitation, esophageal reflux, gastroparesis, cervical radiculopathy, insomnia, and depression who presents due to abdominal pain consistent w/ acute recurrent idiopathic pancreatitis. Acute Pancreatitis -Pt still symptomatic with abdominal pain -Lipase elevated to 400s on admission, currently within normal limits but pt still with significant persistent pain. Speaks to degree of loss of function of pancreas given discordance between pain level and labs. 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 -Continue fluids but @200. Noted Hx of fluid overload in past however higher flow rates needed for improvement; will closely monitor and advise discontinuing fluids should she become symptomatic with SOB, wheezing etc; would AVOID diuresing. -continue morphine 4mg q2h for pain -given low reserve of pancreas can consider supplementing with pancreatic enzymes once this acute bout of pancreatitis resolved. -cause still uncertain; can followup with specialist and Dr. Alfred -will continue to monitor. GERD (gastroesophageal reflux disease):Continue home Omeprazole 20 mg Dyslipidemia: Continue home Atorvastatin 20mg DM (diabetes mellitus): Hold home metformin. Continue ISS Hypertension: Continue to hold HCTZ as potential cause; continue Lisinopril 20mg daily, Amlodipine 10mg daily, and Coreg 25mg BID Qnahl-Lpskiwglc-Uyukt syndrome: Has history of percutaneous transluminal ablation of AV node in 1995 Asthma: currently asymptomatic. Continue home Albuterol PRN, Advair Depression: continue home bupropion 150mg Insomnia: continue home Lorazepam 1mg PRN qhs CODE STATUS: Full DVT Prophylaxis: SCDs Diet: NPO, advance as tolerated Dispo: d/c pending improvement in symptoms Supervising Physician Co-Signing Physician Notes I personally examined the patient and verified all becerril points of history and exam, discussed case, and agree with decision making with Dr Street. feeling mildly better than this AM but still fairly bad overall. notes that twice she's had wheezing and apparently pulmonary edema from IVF when in with pancreatitis vitals noted fatigued but nontoxic heent nc at mmm abd soft nd (+) epigastric ttp with mild guarding but only locally. recurrent idiopathic pancreatitis (probably acute on chronic) -not doing well with foods - revert to NPO for now, try clears again probably in AM depending on progress but allow bowel rest for now -increase IVF and watch closely -increase pain meds for better relief -when feeding - will give trial to pancreatic enzyme supplements - notes she tried years ago and felt no benefit but certainly with her hx and appearance of fairly atrophic pancreas on imaging, retrial worthwhile -outpt f/u w pancreas docs to revisit if an etiology can be determined (ie should she just stop her thiazide, ACEi, statin even though they're low likelihood, or other possible etiologies?) prior fluid overload - ?echo as outpt. not improving on low fluids and typically pancreatits improves better with brisk fluids so will increase and follow closely - but pt and myself agree that it's better to treat what is real and watch closely for what might be. DVT proph - SCDs and ambulation otherwise as above Subjective Pt seen this AM, was in significant pain, rated it 8/10 States she woud give escalating her diet a try but did not feel better. Denies any headache, changes to vision, cough, runny nose, sore throat, dizziness, weakness, chest pain, SOB, palpitations, swelling in hands or feet or numbness or tingling anywhere. Review of Systems Review of Systems: All systems reviewed & are unremarkable except as noted in HPI & below Physical Exam Physical Exam: General: Alert, oriented. Some mild distress Skin: No noted rashes or bruises Psych: Appropriate mood and affect Neuro: No gross deficits HEENT: NC/AT Chest: Nontender to palpation. CV: RRR, Normal s1, s2. No murmurs appreciated Resp: Breath sounds clear bilaterally, no increased effort of breathing. No crackles/rhonchi/rales. Abdomen: Some involuntary abdominal tensing in epigastric and UQ areas, nondistended. No rebound tenderness. Extremities: No edema in lower extremities bilaterally. Results & Data Vital Signs (Past 12 Hours) Vital Signs Temp Pulse Resp BP BP Pulse Ox 04/28/19 14:55 37.2 C 78 18 122/77 96 04/28/19 07:00 36.6 C 90 18 154/92 H 100 Laboratory Results Laboratory Results - last 24 hr 04/28/19 04/28/19 04/28/19 00:09 05:19 05:19 WBC 11.72 H RBC 3.70 L Hgb 11.9 L Hct 34.0 L MCV 91.9 MCH 32.2 MCHC 35.0 RDW Std Deviation 42.8 RDW Coeff of Adolfo 12.7 Plt Count 242 MPV 10.0 Immature Gran % (Auto) 0.2 Neut % (Auto) 78.5 Lymph % (Auto) 10.5 [place] % (Auto) 8.9 Eos % (Auto) 1.7 Baso % (Auto) 0.2 Immature Gran # (Auto) 0.02 Neut # (Auto) 9.21 H Lymph # (Auto) 1.23 [place] # (Auto) 1.04 H Eos # (Auto) 0.20 Baso # (Auto) 0.02 PT 10.8 INR 1.1 Sodium Potassium Chloride Carbon Dioxide Anion Gap BUN Creatinine Est Cr Clr Drug Dosing Est GFR ( Amer) Est GFR (Non-Af Amer) BUN/Creatinine Ratio Glucose POC Glucose 143 H Estimat Average Glucose Hemoglobin A1c Calcium Total Bilirubin AST ALT Alkaline Phosphatase NT-Pro-B Natriuret Pep Total Protein Albumin Globulin Albumin/Globulin Ratio Lipase Hepatitis C Ab Screen 04/28/19 04/28/19 04/28/19 05:19 05:19 05:19 WBC RBC Hgb Hct MCV MCH MCHC RDW Std Deviation RDW Coeff of Adolfo Plt Count MPV Immature Gran % (Auto) Neut % (Auto) Lymph % (Auto) [place] % (Auto) Eos % (Auto) Baso % (Auto) Immature Gran # (Auto) Neut # (Auto) Lymph # (Auto) [place] # (Auto) Eos # (Auto) Baso # (Auto) PT INR Sodium 135 L Potassium 3.7 Chloride 100 Carbon Dioxide 25 Anion Gap 10.0 BUN 12 Creatinine 0.76 Est Cr Clr Drug Dosing 68.8 Est GFR ( Amer) 92.8 Est GFR (Non-Af Amer) 80.0 BUN/Creatinine Ratio 16.4 Glucose 137 H POC Glucose Estimat Average Glucose Pending Hemoglobin A1c Pending Calcium 8.8 Total Bilirubin 0.9 AST 12 L ALT 18 Alkaline Phosphatase 95 NT-Pro-B Natriuret Pep 464 Total Protein 6.6 Albumin 3.2 L Globulin 3.4 Albumin/Globulin Ratio 0.9 Lipase 292 Hepatitis C Ab Screen Neg 04/28/19 11:36 WBC RBC Hgb Hct MCV MCH MCHC RDW Std Deviation RDW Coeff of Adolfo Plt Count MPV Immature Gran % (Auto) Neut % (Auto) Lymph % (Auto) [place] % (Auto) Eos % (Auto) Baso % (Auto) Immature Gran # (Auto) Neut # (Auto) Lymph # (Auto) [place] # (Auto) Eos # (Auto) Baso # (Auto) PT INR Sodium Potassium Chloride Carbon Dioxide Anion Gap BUN Creatinine Est Cr Clr Drug Dosing Est GFR ( Amer) Est GFR (Non-Af Amer) BUN/Creatinine Ratio Glucose POC Glucose 193 H Estimat Average Glucose Hemoglobin A1c Calcium Total Bilirubin AST ALT Alkaline Phosphatase NT-Pro-B Natriuret Pep Total Protein Albumin Globulin Albumin/Globulin Ratio Lipase Hepatitis C Ab Screen Medications Administered Home Medications lorazepam 1 mg tablet 0.5 - 1 mg PO HS PRN tab 12/15/18 [History Confirmed 04/27/19] omeprazole 20 mg tablet,delayed release 20 mg PO DAILY #28 tab 12/15/18 [History Confirmed 04/27/19] bupropion HCl 150 mg 24 hr tablet, extended release 150 mg PO DAILY #90 tab 02/21/19 [Rx Confirmed 04/27/19] hydrochlorothiazide 25 mg tablet 25 mg PO DAILY #90 tab 02/21/19 [Rx Confirmed 04/27/19] lisinopril 20 mg tablet 20 mg PO DAILY #90 tab 02/21/19 [Rx Confirmed 04/27/19] potassium chloride 20 mEq tablet,extended release 20 meq PO DAILY #90 tab 02/21/19 [Rx Confirmed 04/27/19] albuterol sulfate 90 mcg/actuation aerosol inhaler 2 puffs INHALATION Q4H PRN gm 04/15/19 [History Confirmed 04/27/19] atorvastatin 20 mg tablet 10 mg PO QPM #90 tab 04/21/19 [History Confirmed 04/27/19] cinnamon bark 500 mg capsule 1,000 mg PO DAILY cap 04/21/19 [History Confirmed 04/27/19] fluticasone 250 mcg-salmeterol 50 mcg/dose blistr powdr for inhalation 1 puffs INHALATION Q12H #1 ea 04/21/19 [History Confirmed 04/27/19] metformin 500 mg tablet 1,000 mg PO BID tab 04/21/19 [History Confirmed 04/27/19] carvedilol 25 mg PO BID 04/27/19 [History Confirmed 04/27/19] Active Medications Acetaminophen (Tylenol) 650 mg PO Q4H PRN PRN Reason: pain/fever Stop: 05/27/19 19:43 Last Admin: 04/28/19 07:46 Dose: 650 mg Documented by: Al Hydrox/Mg Hydrox/Simethicone (Maalox) 30 ml PO Q6H PRN PRN Reason: Dyspepsia Stop: 05/27/19 19:43 Albuterol (Ventolin Hfa) 2 puffs INH Q4H PRN PRN Reason: shortness of breath Stop: 05/27/19 19:43 Amlodipine Besylate (Norvasc) 10 mg PO QAM MARCIA Stop: 05/28/19 08:59 Last Admin: 04/28/19 08:19 Dose: 10 mg Documented by: Atorvastatin Calcium (Lipitor) 10 mg PO QPM MARCIA Stop: 05/27/19 20:59 Last Admin: 04/27/19 21:18 Dose: 10 mg Documented by: Bupropion HCl (Wellbutrin-Xl) 150 mg PO DAILY MARCIA Stop: 05/28/19 08:59 Last Admin: 04/28/19 08:19 Dose: 150 mg Documented by: Carvedilol (Coreg) 25 mg PO BID MARCIA Stop: 05/27/19 20:59 Last Admin: 04/28/19 08:19 Dose: 25 mg Documented by: Dextrose (Dextrose 50%) 25 - 50 ml IV UD PRN; Protocol PRN Reason: Hypoglycemia Protocol Stop: 05/27/19 19:43 Glucagon (Glucagen) 1 mg SQ UD PRN; Protocol PRN Reason: Hypoglycemia Protocol Stop: 05/27/19 19:43 Glucose (Dex4 Glucose) 4 - 8 tabs PO UD PRN; Protocol PRN Reason: Hypoglycemia Protocol Stop: 05/27/19 19:43 Glucose (Glucose 40%) 15 - 30 gm PO UD PRN; Protocol PRN Reason: Hypoglycemia Protocol Stop: 05/27/19 19:43 Promethazine HCl 25 mg/ Sodium (Chloride) 51 mls @ 204 mls/hr IV Q6H PRN PRN Reason: Nausea And Vomiting Stop: 05/27/19 19:43 Last Infusion: 04/27/19 21:30 Dose: Infused Documented by: Lactated Ringer's (Lr) 1,000 mls @ 200 mls/hr IV .Q5H MARCIA Stop: 05/28/19 12:29 Last Admin: 04/28/19 16:20 Dose: 200 mls/hr Documented by: Insulin Aspart (Novolog Flexpen) 0 units SC Q6 MARCIA; Protocol Stop: 05/27/19 11:14 Last Admin: 04/28/19 13:04 Dose: 2 units Documented by: Lisinopril (Zestril) 20 mg PO DAILY MARCIA Stop: 05/28/19 08:59 Last Admin: 04/28/19 08:19 Dose: 20 mg Documented by: Lorazepam (Ativan) 1 mg PO HS PRN PRN Reason: sleep Stop: 05/27/19 19:43 Magnesium Hydroxide (Milk Of Magnesia) 30 ml PO Q6H PRN PRN Reason: Constipation Stop: 05/27/19 19:43 Miscellaneous (Carbohydrates For Hypoglycemia) 15 - 30 gm PO UD PRN PRN Reason: Hypoglycemia Protocol Stop: 05/27/19 19:43 Miscellaneous Information (Consult Glycemic Management Pharmacy) 1 ea N/A UD PRN; Protocol PRN Reason: Consult Stop: 05/27/19 20:23 Morphine Sulfate (Morphine Sulfate) 4 mg IV Q2H PRN PRN Reason: Pain Stop: 05/11/19 19:43 Last Admin: 04/28/19 15:48 Dose: 4 mg Documented by: Ondansetron HCl (Zofran) 4 mg IV Q6H PRN PRN Reason: Nausea Stop: 05/27/19 19:43 Last Admin: 04/28/19 10:22 Dose: 4 mg Documented by: Pantoprazole Sodium (Protonix) 40 mg PO DAILY MARCIA Stop: 05/28/19 08:59 Last Admin: 04/28/19 08:19 Dose: 40 mg Documented by: Polyethylene Glycol (Miralax Powder Packet) 17 gm PO DAILY PRN PRN Reason: Constipation Stop: 05/27/19 19:43 Potassium Chloride (Klor-Con M20) 20 meq PO DAILY MARCIA Stop: 05/28/19 08:59 Last Admin: 04/28/19 08:19 Dose: 20 meq Documented by: Fluticasone/Salmeterol (Advair Diskus 250/50) 1 puffs INH Q12H MARCIA Stop: 05/27/19 20:59 Last Admin: 04/28/19 08:20 Dose: 1 puffs Documented by: Zolpidem Tartrate (Ambien) 5 mg PO HS PRN PRN Reason: Sleep Stop: 05/27/19 19:43 Resident Activity Tracking Resident Involvement: Resident Care Provided Care Provided: Adult Hospital Medicine (1) Pancreatitis Acute pancreatitis complication: unspecified Chronicity: acute Pancreatitis type: unspecified pancreatitis type Qualified Code(s): K85.90 - Acute pancreatitis without necrosis or infection, unspecified
[2019-04-28] MEDS: PROMETHAZINE HCL 25 MG in SODIUM CHLORIDE 0.9% 50 ML IV PRN (16:26)
--- NOTE | 2019-04-28 17:07 | Billing Data ---
Coding Level of Care Code 03726 Subseq Hosp Care Lvl 3
[2019-04-28] MEDS: ATORVASTATIN 10 MG TAB PO SCH (20:50)
[2019-04-28] MEDS ORDERED: INSULIN ASPART 100 UNITS/ML 3 ML PEN SC SCH (21:00)
[2019-04-29] MEDS: INSULIN ASPART 100 UNITS/ML 3 ML PEN SC SCH ×5 (00:39→21:28)
[2019-04-29] MEDS: MoRPHine SULFATE 2 MG/ML CARP IV PRN (01:14)
[2019-04-29] MEDS: LACTATED RINGER'S 1,000 ML IV SCH ×5 (01:57→19:42)
[2019-04-29 05:55] LABS: Basophils # (auto) 0.02 K/uL (0-0.2); Basophils % (auto) 0.2 %; Eosinophils # (auto) 0.24 K/uL (0-0.5); Hematocrit (blood only) 32.2 % (37-47); Immature Granulocytes # (auto) 0.03 K/uL (0.00-0.02); Immature Granulocytes % (auto) 0.2 %; Lymphocytes # (auto) 1.75 K/uL (1.2-3.4); Lymphocytes % (auto) 14.3 %; Mean Corpuscular Hemoglobin 32.3 pg (25-34); Mean Corpuscular Hgb Conc 34.2 g/dL (32-36); Mean Corpuscular Volume 94.4 fL (80-100); Mean Platelet Volume 10.2 fL (7.4-10.4); Monocytes # (auto) 1.27 K/uL (0.11-0.59); Monocytes % (auto) 10.4 %; Neutrophils # (auto) 8.96 K/uL (1.4-6.5); Neutrophils % (auto) 72.9 %; Nucleated RBC # (auto) 0.02 K/uL (0-0); Nucleated RBC % (auto) 0.1 %; Platelet Count 224 K/uL (130-400); RDW Coefficient of Variation 12.8 % (11.5-14.5); RDW Standard Deviation 44.5 fL (36.4-46.3); Red Blood Count 3.41 M/uL (4.2-5.4); White Blood Count 12.27 K/uL (4.8-10.8)
[2019-04-29 06:44] LABS: Albumin Globulin Ratio 0.8 (0.9-2); Albumin Level 2.7 gm/dl (3.4-5.0); BUN Creatinine Ratio 9.7 (10-20); Bilirubin,Total 0.9 mg/dl (0.2-1); Calcium 8.5 mg/dl (8.5-10.1); Creatinine Clr Calc Pharmacy 67.9 ml/min; Est GFR (African American) 91.3; Est GFR (Non-African American) 78.8; Globulin 3.4 gm/dl (2.5-4.0); Potassium 3.9 mmol/L (3.5-5.1); Total Protein 6.1 gm/dl (6.4-8.2)
[2019-04-29] MEDS: ACETAMINOPHEN 325 MG TAB PO PRN (07:24)
[2019-04-29 07:41] LABS: Estimated Average Glucose 134 mg/dl; Hemoglobin A1C 6.3 % (4.5-5.6)
[2019-04-29] MEDS: lisinopriL 20 MG TAB PO SCH (08:47)
[2019-04-29] MEDS: carvediloL 25 MG TAB PO SCH ×2 (08:47→20:05)
[2019-04-29] MEDS: PANTOprazole 40 MG TAB PO SCH (08:47)
[2019-04-29] MEDS: BuPROPion XL 150 MG TABCR PO SCH (08:48)
[2019-04-29] MEDS: AMLODIPINE BESYLATE 5 MG TAB PO SCH (08:48)
[2019-04-29] MEDS: FLUTICASONE/SALMETEROL 250/50 (ADVAIR) 14 PUFF/1 INHALER INH SCH ×2 (08:48→20:04)
[2019-04-29] MEDS: POTASSIUM CHLORIDE 20 MEQ TABCR PO SCH (08:48)
[2019-04-29] MEDS ORDERED: KETOROLAC TROMETHAMINE 10 MG TABLET PO STA (10:33)
[2019-04-29] MEDS: KETOROLAC TROMETHAMINE 15 MG/ML VIAL IV PRN ×3 (10:52→23:31)
[2019-04-29] MEDS: ACETAMINOPHEN 500 MG TAB PO SCH ×2 (11:39→21:04)
--- NOTE | 2019-04-29 13:08 | Hospitalist Progress Note ---
Date of Service April 29, 2019 Assessment & Plan (1) Pancreatitis: 69 yo F with a PMH of HTN, dyslipidemia, type II DM, asthma, WPW Syndrome, mitral regurgitation, esophageal reflux, gastroparesis, cervical radiculopathy, insomnia, and depression who presents due to abdominal pain consistent w/ acute recurrent idiopathic pancreatitis. Acute Pancreatitis -Pt symptomatically improved with just abdominal bloating -Lipase elevated to 400s on admission, currently within normal limits. 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 -Continue fluids but @80 given improvement in symptoms -continue morphine 4mg q2h for pain, Toradol 15mg IV q6h and scheduled tylenol 1000mg q8h also on board. -started pancreatic enzyme supplementation with creon @ 500mg/kg/meal -cause of pancreatitis still uncertain; can followup with specialist and Dr. Alfred -will continue to monitor. GERD (gastroesophageal reflux disease):Continue home Omeprazole 20 mg Dyslipidemia: Continue home Atorvastatin 20mg DM (diabetes mellitus): Hold home metformin. Continue ISS Hypertension: Continue to hold HCTZ as potential cause; continue Lisinopril 20mg daily, Amlodipine 10mg daily, and Coreg 25mg BID Oqymq-Cvmzzarne-Tmdea syndrome: Has history of percutaneous transluminal ablation of AV node in 1995 Asthma: currently asymptomatic. Continue home Albuterol PRN, Advair Depression: continue home bupropion 150mg Insomnia: continue home Lorazepam 1mg PRN qhs CODE STATUS: Full DVT Prophylaxis: SCDs Diet: NPO, advance as tolerated Dispo: d/c pending improvement in symptoms Supervising Physician Co-Signing Physician Notes I personally examined the patient and verified all becerril points of history and exam, discussed case, and agree with decision making with Dr Street. pain better more bloated. also notes that bloating (while not this bad) has been going on for months after eating with early satiety. vitals noted fatigued but nontoxic heent nc at mmm abd soft moderately distended but not really tender - epigastric tenderness nearly gone, guarding totally gone. recurrent idiopathic pancreatitis (probably acute on chronic) -improving. advance diet -group home bloating - ?pancreatic insufficiency - start supplements (d/w pt will likely take a while to determine improvement or not given current bloating - see below) -f/u with pancreatitis physician - d/w pt that with recurrent episodes and no other clear cause, while only remotely possible that HCTZ, lisinopril, statin could be causes, might be reasonable to stop all of them (treating to protect from what she has (pancreatitis) rather than primary prevention on what she's yet to form (vascular disease) -- and could then use alternative means for BP control if need be bloating -chronic highly suspicious for pancreatic insufficiency -acute most likely morphine side effect (but less pain so needs less, and because of this side effect and improvement in pancreatitis and volume status, will cautiously use low dose toradol for pain) vs postpancreatitis ileus (less likely since seems so mild) -reduce morphine -mobility/diet/time/bowel regimen prior fluid overload - ?echo as outpt. no s/s overload now) DVT proph - SCDs and ambulation otherwise as above Subjective Pt seen this AM, states she had no pain this AM. But just some abdominal distention. States she woud give escalating her diet a try. Denies any headache, changes to vision, cough, runny nose, sore throat, dizz iness, weakness, chest pain, SOB, palpitations, swelling in hands or feet or numbness or tingling anywhere. Review of Systems Review of Systems: All systems reviewed & are unremarkable except as noted in HPI & below Physical Exam Physical Exam: General: Alert, oriented, no acute distress Skin: No noted rashes or bruises Psych: Appropriate mood and affect Neuro: No gross deficits HEENT: NC/AT Chest: Nontender to palpation. CV: RRR, Normal s1, s2. No murmurs appreciated Resp: Breath sounds clear bilaterally, no increased effort of breathing. No crackles/rhonchi/rales. Abdomen: Nontender this AM in epigastric and UQ areas, some mild distention. No rebound tenderness. Extremities: No edema in lower extremities bilaterally. Results & Data Vital Signs (Past 12 Hours) Vital Signs Temp Pulse Resp BP Pulse Ox 04/29/19 07:15 37.2 C 88 20 119/80 93 Laboratory Results Laboratory Results - last 24 hr 04/28/19 04/28/19 04/29/19 05:19 18:22 00:11 WBC RBC Hgb Hct MCV MCH MCHC RDW Std Deviation RDW Coeff of Adolfo Plt Count MPV Immature Gran % (Auto) Neut % (Auto) Lymph % (Auto) [place] % (Auto) Eos % (Auto) Baso % (Auto) Immature Gran # (Auto) Neut # (Auto) Lymph # (Auto) [place] # (Auto) Eos # (Auto) Baso # (Auto) Absolute Nucleated RBC Nucleated RBC % (auto) Sodium Potassium Chloride Carbon Dioxide Anion Gap BUN Creatinine Est Cr Clr Drug Dosing Est GFR ( Amer) Est GFR (Non-Af Amer) BUN/Creatinine Ratio Glucose POC Glucose 138 H 144 H Estimat Average Glucose 134 Hemoglobin A1c 6.3 H Calcium Total Bilirubin AST ALT Alkaline Phosphatase Total Protein Albumin Globulin Albumin/Globulin Ratio Specimen Hemolysis 04/29/19 04/29/19 04/29/19 05:15 05:15 06:05 WBC 12.27 H RBC 3.41 L Hgb 11.0 L Hct 32.2 L MCV 94.4 MCH 32.3 MCHC 34.2 RDW Std Deviation 44.5 RDW Coeff of Adolfo 12.8 Plt Count 224 MPV 10.2 Immature Gran % (Auto) 0.2 Neut % (Auto) 72.9 Lymph % (Auto) 14.3 [place] % (Auto) 10.4 Eos % (Auto) 2.0 Baso % (Auto) 0.2 Immature Gran # (Auto) 0.03 H Neut # (Auto) 8.96 H Lymph # (Auto) 1.75 [place] # (Auto) 1.27 H Eos # (Auto) 0.24 Baso # (Auto) 0.02 Absolute Nucleated RBC 0.02 H Nucleated RBC % (auto) 0.1 Sodium 135 L Potassium 3.9 Chloride 101 Carbon Dioxide 27 Anion Gap 7.0 BUN 8 Creatinine 0.77 Est Cr Clr Drug Dosing 67.9 Est GFR ( Amer) 91.3 Est GFR (Non-Af Amer) 78.8 BUN/Creatinine Ratio 9.7 L Glucose 102 H POC Glucose 105 H Estimat Average Glucose Hemoglobin A1c Calcium 8.5 Total Bilirubin 0.9 AST 18 ALT 15 Alkaline Phosphatase 86 Total Protein 6.1 L Albumin 2.7 L Globulin 3.4 Albumin/Globulin Ratio 0.8 L Specimen Hemolysis 04/29/19 12:11 WBC RBC Hgb Hct MCV MCH MCHC RDW Std Deviation RDW Coeff of Adolfo Plt Count MPV Immature Gran % (Auto) Neut % (Auto) Lymph % (Auto) [place] % (Auto) Eos % (Auto) Baso % (Auto) Immature Gran # (Auto) Neut # (Auto) Lymph # (Auto) [place] # (Auto) Eos # (Auto) Baso # (Auto) Absolute Nucleated RBC Nucleated RBC % (auto) Sodium Potassium Chloride Carbon Dioxide Anion Gap BUN Creatinine Est Cr Clr Drug Dosing Est GFR ( Amer) Est GFR (Non-Af Amer) BUN/Creatinine Ratio Glucose POC Glucose 111 H Estimat Average Glucose Hemoglobin A1c Calcium Total Bilirubin AST ALT Alkaline Phosphatase Total Protein Albumin Globulin Albumin/Globulin Ratio Specimen Hemolysis Medications Administered Home Medications lorazepam 1 mg tablet 0.5 - 1 mg PO HS PRN tab 12/15/18 [History Confirmed 04/27/19] omeprazole 20 mg tablet,delayed release 20 mg PO DAILY #28 tab 12/15/18 [History Confirmed 04/27/19] bupropion HCl 150 mg 24 hr tablet, extended release 150 mg PO DAILY #90 tab 02/21/19 [Rx Confirmed 04/27/19] hydrochlorothiazide 25 mg tablet 25 mg PO DAILY #90 tab 02/21/19 [Rx Confirmed 04/27/19] lisinopril 20 mg tablet 20 mg PO DAILY #90 tab 02/21/19 [Rx Confirmed 04/27/19] potassium chloride 20 mEq tablet,extended release 20 meq PO DAILY #90 tab 02/21/19 [Rx Confirmed 04/27/19] albuterol sulfate 90 mcg/actuation aerosol inhaler 2 puffs INHALATION Q4H PRN gm 04/15/19 [History Confirmed 04/27/19] atorvastatin 20 mg tablet 10 mg PO QPM #90 tab 04/21/19 [History Confirmed 04/27/19] cinnamon bark 500 mg capsule 1,000 mg PO DAILY cap 04/21/19 [History Confirmed 04/27/19] fluticasone 250 mcg-salmeterol 50 mcg/dose blistr powdr for inhalation 1 puffs INHALATION Q12H #1 ea 04/21/19 [History Confirmed 04/27/19] metformin 500 mg tablet 1,000 mg PO BID tab 04/21/19 [History Confirmed 04/27/19] carvedilol 25 mg PO BID 04/27/19 [History Confirmed 04/27/19] Active Medications Acetaminophen (Tylenol) 1,000 mg PO Q8 MARCIA Stop: 05/29/19 10:59 Last Admin: 04/29/19 11:39 Dose: 1,000 mg Documented by: Al Hydrox/Mg Hydrox/Simethicone (Maalox) 30 ml PO Q6H PRN PRN Reason: Dyspepsia Stop: 05/27/19 19:43 Albuterol (Ventolin Hfa) 2 puffs INH Q4H PRN PRN Reason: shortness of breath Stop: 05/27/19 19:43 Last Admin: 04/29/19 11:38 Dose: 2 puffs Documented by: Amlodipine Besylate (Norvasc) 10 mg PO QAM MARCIA Stop: 05/28/19 08:59 Last Admin: 04/29/19 08:48 Dose: 10 mg Documented by: Lipase/Protease/Amylase (Pancreaze (Lipase 10,500u)) 4 cap PO TIDM MARCIA Stop: 05/29/19 13:59 Atorvastatin Calcium (Lipitor) 10 mg PO QPM MARCIA Stop: 05/27/19 20:59 Last Admin: 04/28/19 20:50 Dose: 10 mg Documented by: Bupropion HCl (Wellbutrin-Xl) 150 mg PO DAILY MARCIA Stop: 05/28/19 08:59 Last Admin: 04/29/19 08:48 Dose: 150 mg Documented by: Carvedilol (Coreg) 25 mg PO BID MARCIA Stop: 05/27/19 20:59 Last Admin: 04/29/19 08:47 Dose: 25 mg Documented by: Dextrose (Dextrose 50%) 25 - 50 ml IV UD PRN; Protocol PRN Reason: Hypoglycemia Protocol Stop: 05/27/19 19:43 Glucagon (Glucagen) 1 mg SQ UD PRN; Protocol PRN Reason: Hypoglycemia Protocol Stop: 05/27/19 19:43 Glucose (Dex4 Glucose) 4 - 8 tabs PO UD PRN; Protocol PRN Reason: Hypoglycemia Protocol Stop: 05/27/19 19:43 Glucose (Glucose 40%) 15 - 30 gm PO UD PRN; Protocol PRN Reason: Hypoglycemia Protocol Stop: 05/27/19 19:43 Promethazine HCl 25 mg/ Sodium (Chloride) 51 mls @ 204 mls/hr IV Q6H PRN PRN Reason: Nausea And Vomiting Stop: 05/27/19 19:43 Last Infusion: 04/28/19 16:51 Dose: Infused Documented by: Lactated Ringer's (Lr) 1,000 mls @ 80 mls/hr IV .[id number] MARCIA Stop: 05/28/19 12:29 Last Admin: 04/29/19 13:43 Dose: 200 mls/hr Documented by: Insulin Aspart (Novolog Flexpen) 0 units SC Q6 MARCIA; Protocol Stop: 05/27/19 11:14 Last Admin: 04/29/19 13:44 Dose: Not Given Documented by: Ketorolac Tromethamine (Toradol) 15 mg IV Q6H PRN PRN Reason: Pain Stop: 05/04/19 10:35 Last Admin: 04/29/19 10:52 Dose: 15 mg Documented by: Lisinopril (Zestril) 20 mg PO DAILY MARCIA Stop: 05/28/19 08:59 Last Admin: 04/29/19 08:47 Dose: 20 mg Documented by: Lorazepam (Ativan) 1 mg PO HS PRN PRN Reason: sleep Stop: 05/27/19 19:43 Magnesium Hydroxide (Milk Of Magnesia) 30 ml PO Q6H PRN PRN Reason: Constipation Stop: 05/27/19 19:43 Miscellaneous (Carbohydrates For Hypoglycemia) 15 - 30 gm PO UD PRN PRN Reason: Hypoglycemia Protocol Stop: 05/27/19 19:43 Miscellaneous Information (Consult Glycemic Management Pharmacy) 1 ea N/A UD PRN; Protocol PRN Reason: Consult Stop: 05/27/19 20:23 Morphine Sulfate (Morphine Sulfate) 4 mg IV Q2H PRN PRN Reason: Pain Stop: 05/11/19 19:43 Last Admin: 04/29/19 01:14 Dose: 4 mg Documented by: Ondansetron HCl (Zofran) 4 mg IV Q6H PRN PRN Reason: Nausea Stop: 05/27/19 19:43 Last Admin: 04/28/19 10:22 Dose: 4 mg Documented by: Pantoprazole Sodium (Protonix) 40 mg PO DAILY MARCIA Stop: 05/28/19 08:59 Last Admin: 04/29/19 08:47 Dose: 40 mg Documented by: Polyethylene Glycol (Miralax Powder Packet) 17 gm PO DAILY PRN PRN Reason: Constipation Stop: 05/27/19 19:43 Potassium Chloride (Klor-Con M20) 20 meq PO DAILY MARCIA Stop: 05/28/19 08:59 Last Admin: 04/29/19 08:48 Dose: 20 meq Documented by: Fluticasone/Salmeterol (Advair Diskus 250/50) 1 puffs INH Q12H MARCIA Stop: 05/27/19 20:59 Last Admin: 04/29/19 08:48 Dose: 1 puffs Documented by: Zolpidem Tartrate (Ambien) 5 mg PO HS PRN PRN Reason: Sleep Stop: 05/27/19 19:43 Resident Activity Tracking Resident Involvement: Resident Care Provided Care Provided: Adult Hospital Medicine (1) Pancreatitis Acute pancreatitis complication: unspecified Chronicity: acute Pancreatitis type: unspecified pancreatitis type Qualified Code(s): K85.90 - Acute pancreatitis without necrosis or infection, unspecified
[2019-04-29] MEDS: PANCREAZE (LIPASE 10,500U) CAP PO SCH ×2 (14:40→16:53)
--- NOTE | 2019-04-29 14:51 | Billing Data ---
Coding Level of Care Code 26832 Subseq Hosp Care Lvl 3
[2019-04-29] MEDS ORDERED: Nursing to Pharmacy Communication ONE (19:47)
[2019-04-29] MEDS: ATORVASTATIN 10 MG TAB PO SCH (20:05)
[2019-04-30] MEDS: ACETAMINOPHEN 500 MG TAB PO SCH ×2 (05:48→13:13)
[2019-04-30 05:57] LABS: Basophils # (auto) 0.02 K/uL (0-0.2); Basophils % (auto) 0.2 %; Eosinophils # (auto) 0.35 K/uL (0-0.5); Eosinophils % (auto) 3.6 %; Hematocrit (blood only) 31.1 % (37-47); Hemoglobin 10.7 g/dL (12.0-16.0); Immature Granulocytes # (auto) 0.02 K/uL (0.00-0.02); Immature Granulocytes % (auto) 0.2 %; Lymphocytes # (auto) 1.21 K/uL (1.2-3.4); Lymphocytes % (auto) 12.5 %; Mean Corpuscular Hemoglobin 32.2 pg (25-34); Mean Corpuscular Hgb Conc 34.4 g/dL (32-36); Mean Corpuscular Volume 93.7 fL (80-100); Monocytes # (auto) 0.88 K/uL (0.11-0.59); Monocytes % (auto) 9.1 %; Neutrophils # (auto) 7.17 K/uL (1.4-6.5); Neutrophils % (auto) 74.4 %; Platelet Count 217 K/uL (130-400); RDW Coefficient of Variation 12.7 % (11.5-14.5); RDW Standard Deviation 43.8 fL (36.4-46.3); Red Blood Count 3.32 M/uL (4.2-5.4); White Blood Count 9.65 K/uL (4.8-10.8)
[2019-04-30 06:28] LABS: Albumin Level 2.8 gm/dl (3.4-5.0); BUN Creatinine Ratio 10.1 (10-20); Bilirubin,Total 0.8 mg/dl (0.2-1); Calcium 8.7 mg/dl (8.5-10.1); Creatinine Clr Calc Pharmacy 68.8 ml/min; Est GFR (African American) 92.8; Potassium 3.6 mmol/L (3.5-5.1)
[2019-04-30 06:30] LABS: Albumin Globulin Ratio 0.8 (0.9-2); Globulin 3.4 gm/dl (2.5-4.0); Total Protein 6.2 gm/dl (6.4-8.2)
[2019-04-30] MEDS: FLUTICASONE/SALMETEROL 250/50 (ADVAIR) 14 PUFF/1 INHALER INH SCH (09:10)
[2019-04-30] MEDS: AMLODIPINE BESYLATE 5 MG TAB PO SCH (09:11)
[2019-04-30] MEDS: PANCREAZE (LIPASE 10,500U) CAP PO SCH ×3 (09:11→16:26)
[2019-04-30] MEDS: carvediloL 25 MG TAB PO SCH (09:12)
[2019-04-30] MEDS: BuPROPion XL 150 MG TABCR PO SCH (09:12)
[2019-04-30] MEDS: lisinopriL 20 MG TAB PO SCH (09:12)
[2019-04-30] MEDS: PANTOprazole 40 MG TAB PO SCH (09:12)
[2019-04-30] MEDS: POTASSIUM CHLORIDE 20 MEQ TABCR PO SCH (09:12)
[2019-04-30] MEDS: INSULIN ASPART 100 UNITS/ML 3 ML PEN SC SCH ×3 (09:15→17:34)
[2019-04-30] MEDS: KETOROLAC TROMETHAMINE 15 MG/ML VIAL IV PRN ×2 (09:22→16:25)
--- NOTE | 2019-04-30 09:53 | Pharmacy Report ---
Glycemic Control Progress Note - Date of Service April 30, 2019 - Scope Glycemic Pharmacist consulted for glycemic control to write orders per [facility] inpatient glycemic control protocol. - Objective Accuchecks BSG(last 24 hours):: 04/29/19 04/29/19 04/29/19 12:11 16:33 19:41 Glucose POC Glucose 111 H 111 H 116 H 04/30/19 04/30/19 05:28 08:12 Glucose 109 H POC Glucose 115 H HbA1c:: Hemoglobin A1c 6.3 % (4.5-5.6) H 04/28/19 05:19 - Recent Pertinent Medications The patient is currently receiving: * Basal insulin: Lantus -- units every -- hours * Correctional Insulin: Novolog Correction per scale ACHS Goal Range: Low 110 mg/dL - High 140 mg/dL Correction Factor: 30 mg/dL/unit * Prandial insulin: Per carb ratio of 1 unit per 15 grams CHO consumed - Outpatient Anti-Diabetic Meds METFORMIN 2 MG DAILY - Assessment & Plan ASSESSMENT: * See progress note from 04/28/19 for more background info, in short: * Pt receiving SQ basal bolus insulin regimen for hyperglycemia secondary to baseline DM (outpatient regimen on hold).. Patient just started on diet. * Patient is currently receiving an average of 2 units of insulin per day * 0 units of basal insulin * 2 units of prandial/correctional insulin * BSGs ranging 105 - 116 mg/dl over the past 24hrs * Changes needed to insulin regimen: * AM Fasting BSG = 115 mg/dl. This is in goal range for patient based on inpatient targets and co-morbidities. Continue no basal insulin at this point. * Post-prandial BSGs are in range therefore no changes needed to CF/CR * Total daily dose = <10 units. PLAN FOR INPATIENT GLYCEMIC CONTROL: * Continuing correction factor of 30 mg/dl/unit * Continuing carb ratio of 1 unit per 15 grams CHO consumed * Continuing goal range of Low 110 mg/dL - High 140 mg/dL RECOMMENDATIONS FOR DISCHARGE: * Continue home regimen as HbA1C within goal range. Thank you.
--- NOTE | 2019-04-30 15:24 | Discharge Summary ---
Date of Service April 30, 2019 Admission HPI Per Admitting Provider Flaquita is a 69 y/o F with a PMH of HTN, dyslipidemia, type II DM, asthma, Dxcmf-Dkvjvwyfu-Pawpk, mitral regurgitation, esophageal reflux, gastroparesis, cervical radiculopathy, depression and recurrent idiopathic pancreatitis who presents with abdominal pain. The pain has been going on for a couple of weeks off and on but in the last 2 days it has gotten much worse and is constant 5-6/10. States it feels like so meone has hot coals on her abdomen or someone is sticking her with a hot poker. Mostly epigastric pain. Feels bloated by the end of the day. She cannot eat - she gets bloated and sick, the pain worsens somewhat. States she "is hungry but also not hungry." States she has been getting cold but woke up last night drenched in sweat. The pain radiates to her back - states she has a history of pancreatitis. She was seen at [facility] by Dr. Mishra a pancreatic specialist who was unable to identify what was causing her to have pancreatitis. The last episode was approximately 3 years ago and she was seen by Dr. Alfred here. In reviewing the potential causes of pancreatitis with Ms. Vera she has had her gallbladder removed when she was 26 years old, she has not drank over the last year, she has no history of autoimmune disease, her brother has had one episode of pancreatitis, but no other family history, she is unsure if she has elevated TAG, [place] thinks that it is unlikely that she has been exposed to toxins. She is taking HCTZ, Lisinopril, and a Statin that are listed as possible pancreatitis etiologies, although she has not had any medication changes lately. She has not been stung by a scorpion and has not ingested methanol. Mentioned that she had cystocele bladder repair 5 weeks prior that has been healing well. Admission Exam Per Admitting Provider Constitutional: well developed and + well hydrated Eyes: PERRL, conjunctivae normal, anicteric sclerae ENMT: external ear and nose normal, oropharynx normal Neck: normal visual inspection Respiratory: normal respiratory effort, lungs clear to auscultation Cardiovascular: Rate/Rhythm: regular rate and regular rhythm Heart Sounds: + murmur (hollow systolic murmur ) Gastrointestinal (Abdomen): Inspection/Auscultation: + abdomen distended Percussion/Palpation: abdomen nontender, no guarding, abdomen not rigid and no hepatosplenomegaly Musculoskeletal: no cyanosis or clubbing, extremities motor strength 5/5 Skin: no rashes, warm and dry Neurologic: Speech / Cognition: normal speech Motor/Sensory: no tremor Psychiatric: Orientation: alert and oriented x 3 Speech: normal rate/rhythm/volume of speech Affect: + anxious affect Principal Diagnosis Pancreatitis Discharge Exam General: Alert, oriented, no acute distress Skin: No noted rashes or bruises Psych: Appropriate mood and affect Neuro: No gross deficits HEENT: NC/AT Chest: Nontender to palpation. CV: RRR, Normal s1, s2. No murmurs appreciated Resp: Breath sounds clear bilaterally, no increased effort of breathing. No crackles/rhonchi/rales. Abdomen: Nontender this AM in epigastric and UQ areas, some mild distention. No rebound tenderness. Extremities: No edema in lower extremities bilaterally. Discharge Data Allergies Allergy/AdvReac Type Severity Reaction Status Date / Time Cephalosporins Allergy Unknown KEFLEX Verified 04/27/19 17:27 cephalexin [From Keflex] Allergy Verified 04/27/19 17:27 pseudoephedrine AdvReac Mild RAPID HEART Verified 04/27/19 17:27 Consultations 04/27/19 17:43 ED Decision to Admit Stat Ordered Studies 04/27/19 19:44 MR MRCP Urgent Hospital Course (1) Pancreatitis: 69 yo F with a PMH of HTN, dyslipidemia, type II DM, asthma, WPW Syndrome, mitral regurgitation, esophageal reflux, gastroparesis, cervical radiculopathy, insomnia, and depression who presented due to abdominal pain consistent w/ acute recurrent idiopathic pancreatitis. Admitted on Apr 27 and discharged on Apr 30 2019. Acute Pancreatitis -Pt symptomatically improved with just abdominal bloating on discharge -Lipase elevated to 400s on admission, currently within normal limits. -Elevated WBC on admission, normal on discharge -CT abdomen/Pelvis: Severe lipomatous replacement of the pancreas/pancreatic parenchymal atrophy with possible superimposed interstitial edematous pancreatitis -MRCP: pancreatitis but normal -Advanced diet as tolerated to solids on discharge -Fluids as high as 200mls/hr; Discontinued fluids on discharge given improvement in symptoms and subsequently developed facial and extremity edema. -morphine 4mg q2h for pain, Toradol 15mg IV q6h and scheduled tylenol 1000mg q8h while hospitalized. Discharged with PO toradol 10mg q6h for 5 days to be used for breakthrough pain after using OTC tylenol 1000mg TID scheduled. PCP monitoring of liver and kidney function recommended. -started pancreatic enzyme supplementation with Creon @ 500mg/kg/meal and discharged with 60 days of the same. Advised to take 4 tabs with each meal given little reserve of pancreas and abdominal bloating and fullness after meals. -cause of pancreatitis still uncertain; can followup with specialist at [facility], Dr. Alfred and PCP Dr. Rogers GERD (gastroesophageal reflux disease):Continue home Omeprazole 20 mg Dyslipidemia: Continue home Atorvastatin 20mg DM (diabetes mellitus): Continue home metformin. ISS while hospitalized. Hypertension: continue Lisinopril 20mg daily, Amlodipine 10mg daily, and Coreg 25mg BID, HCTZ on discharge; HCTZ was held in hospital as potential cause of pancreatitis. Myrqa-Yitrxpdxj-Jhirr syndrome: Has history of percutaneous transluminal ablation of AV node in 1995 Asthma: currently asymptomatic. Continue home Albuterol PRN, Advair Depression: continue home bupropion 150mg Insomnia: continue home Lorazepam 1mg PRN qhs Total Time Total Time Spent Total Time Spent (In Minutes): <30 Discharge Plan Discharge Items Patient Disposition: Home - Self-Care Reason For Visit: PANCREATITIS Discharge Diagnosis: Pancreatitis Activity: Per Instructions section Non-emergency contact: Primary Care Provider Call non-emergency contact if: you have any medication questions, your symptoms worsen and you have a fever Follow-up/Referrals: Gene Rogers MD [Primary Care Provider] - 05/05/19 1:30 pm (Please, follow up at Dr. Rogers's office with his associate, Clarissa Suresh PA-C, on May 05 at 1:30 pm. *If you need to change this appointment, call their office at [phone].) Diet: Low Sodium (2gm) Addtl Attending Provider Instructions: Ms. Vera, you were admitted due to your history of pancreatitis. We treated you and your symptoms seemed to improve. Continue to eat and advance your diet at home; If you find that you are not tolerating it, you can go back down to purely liquid foods and try going back up to solid foods at a later time. We are discharging you with some pancreatic enzymes to be used with each meal. Please take as directed. For your pain we recommend taking over the counter tylenol 1000mg 3 times a day and using the prescribed Toradol 10mg for any additional pain as needed. Please note that you can only take a maximum of FOUR of the Toradol pills a day. We recommend close followup with Dr. Rogers within the next week (you have an appoi ntment scheduled for May 05) for continued assessment (given the pain medications he might need to monitor your liver and kidney function) and for re- fills on your medications if needed. (you have a 60 day supply of pancreatic enzymes and 5 days worth of home toradol). We also recommend close followup with your pancreatic specialist at [facility]. Should your symptoms return or worsen, please go to the nearest emergency room. It was a pleasure taking care of you during your stay here! Pending Studies at Discharge: No Stand-Alone Forms: My [employer], Smoking Cessation Medications and DC Order Prescriptions: [place] 36,000-114,000- 180,000 unit Capsule,Delayed Release(Dr/Ec) 4 cap PO TIDM 60 Days Qty: 240 RF: 0 ketorolac 10 mg tablet 10 mg PO Q6H PRN (Reason: pain) 5 Days Qty: 20 RF: 0 Continued bupropion HCl 150 mg tablet extended release 24 hr 150 mg PO DAILY Qty: 90 RF: 3 hydrochlorothiazide 25 mg tablet 25 mg PO DAILY Qty: 90 RF: 3 lisinopril 20 mg tablet 20 mg PO DAILY Qty: 90 RF: 3 potassium chloride 20 mEq tablet extended release 20 meq PO DAILY Qty: 90 RF: 3 lorazepam 1 mg tablet 0.5 - 1 mg PO HS PRN (Reason: sleep) RF: 0 omeprazole 20 mg tablet,delayed release (DR/EC) 20 mg PO DAILY Qty: 28 RF: 0 albuterol sulfate 90 mcg/actuation HFA aerosol inhaler 2 puffs inhalation Q4H PRN (Reason: shortness of breath) RF: 0 cinnamon bark 500 mg capsule 1,000 mg PO DAILY RF: 0 fluticasone propion-salmeterol 250-50 mcg/dose blister with device 1 puffs inhalation Q12H Qty: 1 RF: 0 metformin 500 mg tablet 1,000 mg PO BID RF: 0 atorvastatin 20 mg tablet 10 mg PO QPM Qty: 90 RF: 0 carvedilol 12.5 mg tablet 25 mg PO BID RF: 0 Discharge Orders: Discharge Order (Routine); Ordered 04/30/19 Ordered By: Emily Street Admission Data Admit Date/Time: 04/27/19 19:14 Attending Provider: Dylan Oshea Admit Provider: Betsy De Primary Care Provider: Gene Rogers Other Providers: Betsy De Other Interventions: Discharge Summary Assessment (RN) Last Done: 04/30/19 17:57 DC Date/Time DO NOT enter until pt leaves facility: 04/30/19 18:26 Supervising Physician Co-Signing Physician Notes I personally examined the patient and verified all becerril points of history and exam, discussed case, and agree with decision making with Dr Street. pain better still bloated but eating better. tolerating pancreatic enzymes wel l. vitals noted fatigued but nontoxic heent nc at mmm abd soft moderately distended but not really tender - epigastric tenderness essentially gone, guarding totally gone. recurrent idiopathic pancreatitis (probably acute on chronic) -improving. 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 - ?pancreatic insufficiency - start supplements (d/w pt will likely take a while to determine improvement or not given current bloating - see below) -f/u with pancreatitis physician - d/w pt that with recurrent episodes and no other clear cause, while only remotely possible that HCTZ, lisinopril, statin could be causes, might be reasonable to stop all of them (treating to protect from what she has (pancreatitis) rather than primary prevention on what she's yet to form (vascular disease) -- and could then use alternative means for BP control if need be - but obviously with these mcc implications it would be best deferred to PCP bloating -chronic highly suspicious for pancreatic insufficiency -acute most likely morphine side effect (but less pain so needs less, and because of this side effect and improvement in pancreatitis and volume status, will cautiously use low dose toradol for pain) vs postpancreatitis ileus (less likely since seems so mild) - either way improved and stable for home -mobility/diet/time/bowel regimen DVT proph - SCDs and ambulation otherwise as above, stable for home Resident Activity Tracking Resident Involvement: Resident Care Provided Care Provided: Adult [facility]
--- NOTE | 2019-04-30 17:46 | Hospitalist Progress Note ---
Date of Service April 30, 2019 Assessment & Plan (1) Pancreatitis: 69 yo F with a PMH of HTN, dyslipidemia, type II DM, asthma, WPW Syndrome, mitral regurgitation, esophageal reflux, gastroparesis, cervical radiculopathy, insomnia, and depression who presented due to abdominal pain consistent w/ acute recurrent idiopathic pancreatitis. Acute Pancreatitis -Pt symptomatically improved with just abdominal bloating -Lipase elevated to 400s on admission, currently within normal limits. -Elevated WBC on admission, normal currently -CT abdomen/Pelvis: Severe lipomatous replacement of the pancreas/pancreatic parenchymal atrophy with possible superimposed interstitial edematous pancreatitis -MRCP: pancreatitis but normal -Advanced diet as tolerated to solids -Fluids as high as 200mls/hr; Discontinued fluids given improvement in symptoms and subsequently developed facial and extremity edema. -morphine 4mg q2h for pain, Toradol 15mg IV q6h and scheduled tylenol 1000mg q8h while hospitalized. -started pancreatic enzyme supplementation with Creon @ 500mg/kg/meal. Advised to take 4 tabs with each meal given little reserve of pancreas and abdominal bloating and fullness after meals. -cause of pancreatitis still uncertain; can followup with specialist at [facility], Dr. Alfred and PCP Dr. Rogers GERD (gastroesophageal reflux disease):Continue home Omeprazole 20 mg Dyslipidemia: Continue home Atorvastatin 20mg DM (diabetes mellitus): hold home metformin. ISS while hospitalized. Hypertension: continue Lisinopril 20mg daily, Amlodipine 10mg daily, and Coreg 25mg BID, HCTZ on discharge; HCTZ was held in hospital as potential cause of pancreatitis. Ecqlj-Aymooscqp-Qvucd syndrome: Has history of percutaneous transluminal ablation of AV node in 1995 Asthma: currently asymptomatic. Continue home Albuterol PRN, Advair Depression: continue home bupropion 150mg Insomnia: continue home Lorazepam 1mg PRN qhs Subjective Pt seen this AM, states she had some back pain this AM with bloating and swelling of hands and feet. Denies any headache, changes to vision, cough, runny nose, sore throat, dizziness, weakness, chest pain, SOB, palpitations, numbness or tingling anywhere. Review of Systems Review of Systems: All systems reviewed & are unremarkable except as noted in HPI & below Physical Exam Physical Exam: General: Alert, oriented, no acute distress Skin: No noted rashes or bruises Psych: Appropriate mood and affect Neuro: No gross deficits HEENT: NC/AT Chest: Nontender to palpation. CV: RRR, Normal s1, s2. No murmurs appreciated Resp: Breath sounds clear bilaterally, no increased effort of breathing. No crackles/rhonchi/rales. Abdomen: Nontender this AM in epigastric and UQ areas, some mild distention. No rebound tenderness. Extremities: No edema in lower extremities bilaterally. Results & Data Vital Signs (Past 12 Hours) Vital Signs Temp Pulse Resp BP Pulse Ox 04/30/19 15:17 37.0 C 71 16 118/76 97 04/30/19 07:39 36.8 C 70 16 115/77 96 Laboratory Results Laboratory Results - last 24 hr 04/29/19 04/30/19 04/30/19 19:41 05:28 05:28 WBC 9.65 RBC 3.32 L Hgb 10.7 L Hct 31.1 L MCV 93.7 MCH 32.2 MCHC 34.4 RDW Std Deviation 43.8 RDW Coeff of Adolfo 12.7 Plt Count 217 MPV 10.0 Immature Gran % (Auto) 0.2 Neut % (Auto) 74.4 Lymph % (Auto) 12.5 [place] % (Auto) 9.1 Eos % (Auto) 3.6 Baso % (Auto) 0.2 Immature Gran # (Auto) 0.02 Neut # (Auto) 7.17 H Lymph # (Auto) 1.21 [place] # (Auto) 0.88 H Eos # (Auto) 0.35 Baso # (Auto) 0.02 Sodium 138 Potassium 3.6 Chloride 106 Carbon Dioxide 25 Anion Gap 7.0 BUN 8 Creatinine 0.76 Est Cr Clr Drug Dosing 68.8 Est GFR ( Amer) 92.8 Est GFR (Non-Af Amer) 80.0 BUN/Creatinine Ratio 10.1 Glucose 109 H POC Glucose 116 H Calcium 8.7 Total Bilirubin 0.8 AST 24 ALT 28 Alkaline Phosphatase 102 Total Protein 6.2 L Albumin 2.8 L Globulin 3.4 Albumin/Globulin Ratio 0.8 L 04/30/19 04/30/19 04/30/19 08:12 11:53 15:28 WBC RBC Hgb Hct MCV MCH MCHC RDW Std Deviation RDW Coeff of Adolfo Plt Count MPV Immature Gran % (Auto) Neut % (Auto) Lymph % (Auto) [place] % (Auto) Eos % (Auto) Baso % (Auto) Immature Gran # (Auto) Neut # (Auto) Lymph # (Auto) [place] # (Auto) Eos # (Auto) Baso # (Auto) Sodium Potassium Chloride Carbon Dioxide Anion Gap BUN Creatinine Est Cr Clr Drug Dosing Est GFR ( Amer) Est GFR (Non-Af Amer) BUN/Creatinine Ratio Glucose POC Glucose 115 H 88 116 H Calcium Total Bilirubin AST ALT Alkaline Phosphatase Total Protein Albumin Globulin Albumin/Globulin Ratio 04/30/19 17:21 WBC RBC Hgb Hct MCV MCH MCHC RDW Std Deviation RDW Coeff of Adolfo Plt Count MPV Immature Gran % (Auto) Neut % (Auto) Lymph % (Auto) [place] % (Auto) Eos % (Auto) Baso % (Auto) Immature Gran # (Auto) Neut # (Auto) Lymph # (Auto) [place] # (Auto) Eos # (Auto) Baso # (Auto) Sodium Potassium Chloride Carbon Dioxide Anion Gap BUN Creatinine Est Cr Clr Drug Dosing Est GFR ( Amer) Est GFR (Non-Af Amer) BUN/Creatinine Ratio Glucose POC Glucose 109 H Calcium Total Bilirubin AST ALT Alkaline Phosphatase Total Protein Albumin Globulin Albumin/Globulin Ratio Medications Administered Home Medications lorazepam 1 mg tablet 0.5 - 1 mg PO HS PRN tab 12/15/18 [History Confirmed 04/27/19] omeprazole 20 mg tablet,delayed release 20 mg PO DAILY #28 tab 12/15/18 [History Confirmed 04/27/19] bupropion HCl 150 mg 24 hr tablet, extended release 150 mg PO DAILY #90 tab 02/21/19 [Rx Confirmed 04/27/19] hydrochlorothiazide 25 mg tablet 25 mg PO DAILY #90 tab 02/21/19 [Rx Confirmed 04/27/19] lisinopril 20 mg tablet 20 mg PO DAILY #90 tab 02/21/19 [Rx Confirmed 04/27/19] potassium chloride 20 mEq tablet,extended release 20 meq PO DAILY #90 tab 02/21/19 [Rx Confirmed 04/27/19] albuterol sulfate 90 mcg/actuation aerosol inhaler 2 puffs INHALATION Q4H PRN gm 04/15/19 [History Confirmed 04/27/19] atorvastatin 20 mg tablet 10 mg PO QPM #90 tab 04/21/19 [History Confirmed 04/27/19] cinnamon bark 500 mg capsule 1,000 mg PO DAILY cap 04/21/19 [History Confirmed 04/27/19] fluticasone 250 mcg-salmeterol 50 mcg/dose blistr powdr for inhalation 1 puffs INHALATION Q12H #1 ea 04/21/19 [History Confirmed 04/27/19] metformin 500 mg tablet 1,000 mg PO BID tab 04/21/19 [History Confirmed 04/27/19] carvedilol 25 mg PO BID 04/27/19 [History Confirmed 04/27/19] ketorolac 10 mg PO Q6H PRN 5 Days #20 tab 04/30/19 [Rx] [id number] [Creon] 4 cap PO TIDM 60 Days #240 cap 04/30/19 [Rx] Active Medications Acetaminophen (Tylenol) 1,000 mg PO Q8 MARCIA Stop: 05/29/19 10:59 Last Admin: 04/30/19 13:13 Dose: 1,000 mg Documented by: Al Hydrox/Mg Hydrox/Simethicone (Maalox) 30 ml PO Q6H PRN PRN Reason: Dyspepsia Stop: 05/27/19 19:43 Albuterol (Ventolin Hfa) 2 puffs INH Q4H PRN PRN Reason: shortness of breath Stop: 05/27/19 19:43 Last Admin: 04/29/19 11:38 Dose: 2 puffs Documented by: Amlodipine Besylate (Norvasc) 10 mg PO QAM MARCIA Stop: 05/28/19 08:59 Last Admin: 04/30/19 09:11 Dose: 10 mg Documented by: Lipase/Protease/Amylase (Pancreaze (Lipase 10,500u)) 4 cap PO TIDM MARCIA Stop: 05/29/19 13:59 Last Admin: 04/30/19 16:26 Dose: 4 cap Documented by: Atorvastatin Calcium (Lipitor) 10 mg PO QPM MARCIA Stop: 05/27/19 20:59 Last Admin: 04/29/19 20:05 Dose: 10 mg Documented by: Bupropion HCl (Wellbutrin-Xl) 150 mg PO DAILY MARCIA Stop: 05/28/19 08:59 Last Admin: 04/30/19 09:12 Dose: 150 mg Documented by: Carvedilol (Coreg) 25 mg PO BID MARCIA Stop: 05/27/19 20:59 Last Admin: 04/30/19 09:12 Dose: 25 mg Documented by: Dextrose (Dextrose 50%) 25 - 50 ml IV UD PRN; Protocol PRN Reason: Hypoglycemia Protocol Stop: 05/27/19 19:43 Glucagon (Glucagen) 1 mg SQ UD PRN; Protocol PRN Reason: Hypoglycemia Protocol Stop: 05/27/19 19:43 Glucose (Dex4 Glucose) 4 - 8 tabs PO UD PRN; Protocol PRN Reason: Hypoglycemia Protocol Stop: 05/27/19 19:43 Glucose (Glucose 40%) 15 - 30 gm PO UD PRN; Protocol PRN Reason: Hypoglycemia Protocol Stop: 05/27/19 19:43 Promethazine HCl 25 mg/ Sodium (Chloride) 51 mls @ 204 mls/hr IV Q6H PRN PRN Reason: Nausea And Vomiting Stop: 05/27/19 19:43 Last Infusion: 04/28/19 16:51 Dose: Infused Documented by: Lactated Ringer's (Lr) 1,000 mls @ 80 mls/hr IV .[id number] [facility] Stop: 05/28/19 12:29 Last Infusion: 04/30/19 06:05 Dose: 0 mls/hr Documented by: Insulin Aspart (Novolog Flexpen) 0 units [facility]; Protocol Stop: 05/29/19 16:44 Last Admin: 04/30/19 17:34 Dose: Not Given Documented by: Ketorolac Tromethamine (Toradol) 15 mg IV Q6H PRN PRN Reason: Pain Stop: 05/04/19 10:35 Last Admin: 04/30/19 16:25 Dose: 15 mg Documented by: Lisinopril (Zestril) 20 mg PO DAILY [facility] Stop: 05/28/19 08:59 Last Admin: 04/30/19 09:12 Dose: 20 mg Documented by: Lorazepam (Ativan) 1 mg PO HS PRN PRN Reason: sleep Stop: 05/27/19 19:43 Magnesium Hydroxide (Milk Of Magnesia) 30 ml PO Q6H PRN PRN Reason: Constipation Stop: 05/27/19 19:43 Miscellaneous (Carbohydrates For Hypoglycemia) 15 - 30 gm PO UD PRN PRN Reason: Hypoglycemia Protocol Stop: 05/27/19 19:43 Miscellaneous Information (Consult Glycemic Management Pharmacy) 1 ea N/A UD PRN; Protocol PRN Reason: Consult Stop: 05/27/19 20:23 Morphine Sulfate (Morphine Sulfate) 4 mg IV Q2H PRN PRN Reason: Pain Stop: 05/11/19 19:43 Last Admin: 04/29/19 01:14 Dose: 4 mg Documented by: Ondansetron HCl (Zofran) 4 mg IV Q6H PRN PRN Reason: Nausea Stop: 05/27/19 19:43 Last Admin: 04/28/19 10:22 Dose: 4 mg Documented by: Pantoprazole Sodium (Protonix) 40 mg PO DAILY MARCIA Stop: 05/28/19 08:59 Last Admin: 04/30/19 09:12 Dose: 40 mg Documented by: Polyethylene Glycol (Miralax Powder Packet) 17 gm PO DAILY PRN PRN Reason: Constipation Stop: 05/27/19 19:43 Potassium Chloride (Klor-Con M20) 20 meq PO DAILY MARCIA Stop: 05/28/19 08:59 Last Admin: 04/30/19 09:12 Dose: 20 meq Documented by: Fluticasone/Salmeterol (Advair Diskus 250/50) 1 puffs INH Q12H MARCIA Stop: 05/27/19 20:59 Last Admin: 04/30/19 09:10 Dose: 1 puffs Documented by: Zolpidem Tartrate (Ambien) 5 mg PO HS PRN PRN Reason: Sleep Stop: 05/27/19 19:43 Resident Activity Tracking Resident Involvement: Resident Care Provided Care Provided: Adult Hospital Medicine (1) Pancreatitis Acute pancreatitis complication: unspecified Chronicity: acute Pancreatitis type: unspecified pancreatitis type Qualified Code(s): K85.90 - Acute pancreatitis without necrosis or infection, unspecified
--- NOTE | 2019-04-30 19:24 | Billing Data ---
Coding Level of Care Code D/C Day Management <30 mins
== END 2019-04-30 18:26 | disposition home or self-care (01) | DRG 440 ==
LOC: ED 16:51 → 4W 19:14 → SUATTDRO 19:14 → 4W 19:32

== ENCOUNTER 2025-01-18 23:51 | Observation (INO) ==
[2025-01-19 00:23] LABS: Hematocrit (blood only) 46.5 % (37.0-47.0); Hemoglobin 15.6 g/dl (12.0-16.0); Immature Granulocytes # (auto) 0.02 K/uL (0.01-0.20); Immature Granulocytes % (auto) 0.2 %; Mean Corpuscular Hemoglobin 30.6 pg (25.0-34.0); Mean Corpuscular Volume 91.4 fL (80.0-100.0); Platelet Count 297 K/uL (130-400); RDW Standard Deviation 42.1 fL (36.4-46.3); Red Blood Count 5.09 M/uL (4.20-5.40); White Blood Count 9.50 K/ul (4.8-10.8)
[2025-01-19 00:41] LABS: Alanine Aminotransferase 24.0 U/L (7-52); Albumin Globulin Ratio 1.2 (0.9-2); Alkaline Phosphatase 86.0 U/L (34-104); Anion Gap 12.0 (3-11); Bilirubin,Total 0.4 mg/dl (0.2-1.0); Blood Urea Nitrogen 19.0 mg/dl (6-23); Calcium 9.9 mg/dl (8.6-10.3); Carbon Dioxide 25.0 mmol/L (21-32); Chloride 103.0 mmol/L (98-107); Creatinine Clr Calc Pharmacy 48.1 ml/min; Globulin 3.8 gm/dl (2.5-4.0); Glucose 134.0 mg/dl (70-99(Fasting)); Lipase 44.0 U/L (11-82); Potassium 4.0 mmol/L (3.5-5.1); Sodium 140.0 mmol/L (136-145); Total Protein 8.4 gm/dl (6.0-8.3)
[2025-01-19] MEDS: SODIUM CHLORIDE 0.9% 1,000 ML IV ONE (00:41)
[2025-01-19] MEDS: LABETALOL HCL IV 5 MG/ML 20ML IV STA ×2 (00:41→01:02)
[2025-01-19 00:49] LABS: Magnesium 1.7 mg/dl (1.7-2.4)
[2025-01-19 01:04] LABS: Appearance Urine Clear (Clear); Glucose Urine UA 2+ (Negative)
[2025-01-19 01:05] LABS: Thyroid Stimulating Hormone 4.823 uIu/ml (0.300-4.500)
[2025-01-19 01:10] LABS: INR 0.9 (0.9-1.1); Partial Thromboplastin Time 25 Seconds (21-31); Prothrombin Time 10.3 Seconds (9.0-12.0)
--- NOTE | 2025-01-19 01:50 | XRay Report ---
EXAM: XR chest 1V portable CLINICAL HISTORY: Chest pain, nonspecific. TECHNIQUE: An X-ray image of the chest is obtained in AP projection. COMPARISON: CR dated 01/14/2018. FINDINGS: Pulmonary Parenchyma: Mild peribronchial thickening with slightly increased bronchovascular markings in both lungs, due to infective-bronchitic versus congestive changes, interval new, Clinical and lab correlation suggested. No evidence of consolidation or collapse. No pulmonary nodules are identified. No evidence of pleural effusion or pleural thickening. Heart and Mediastinum: The heart size appears mildly enlarged. No mediastinal widening or masses. No hilar or mediastinal lymphadenopathy. Bony Thorax: Bony thorax appears intact without fractures or deformities. A metallic fixator is seen in the upper thoracic spine. Soft Tissues: Soft tissues overlying the chest wall are unremarkable. Overlying chest leads are seen. IMPRESSION: 1. Mild peribronchial thickening with slightly increased bronchovascular markings in both lungs, due to infective-bronchitic versus congestive changes, interval new, Clinical and lab correlation suggested. 2. No pleural effusion seen. Electronically signed by Donnie Melgar 01-19-2025 01:49 AM
--- NOTE | 2025-01-19 02:52 | History & Physical Report ---
Date of Service January 19, 2025 Assessment & Plan (1) Rapid atrial fibrillation: Plan: 75-year-old female with past medical history significant for type 2 diabetes, mixed dyslipidemia, chronic sinusitis, hypertension, Hwcgg-Ptfssoibr-Yketq syndrome status post ablation 1993, GERD, gastroparesis, vitamin B12 deficiency, history of hematuria, history of brachial plexus lesions, history of subacute bacterial endocarditis prophylaxis candidate presents with palpitations and found to be in rapid A-fib. Patient today when going to bed to sleep noticed heart palpitations. It happens once in a while but then will subside after short duration.. But today they were not subsiding and associated with chest discomfort which prompted patient to come to the ER. No shortness of breath. No dizziness. No headache. No runny nose or sore throat. No cough. No fe vers. Appetite is okay. No nausea. No abdominal pain. Normal bowel and bladder movements. Patient generally active. On presentation heart rates were in 150s and blood pressure was high. Currently resting comfortably. Rapid atrial fibrillation Associated with chest discomfort Initial troponin 4.5 Received IV labetalol in the ER Will place an IV Lopressor as needed IV heparin Follow serial cardiac enzymes and echo Telemetry Cardiology consult in a.m. 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 medications Sliding scale Will monitor DVT prophylaxis IV heparin Disposition Telemetry Full code. History of Present Illness Chief Complaint: Rapid A-fib Primary Care Provider: Vadim Joya MD 75-year-old female with past medical history significant for type 2 diabetes, mixed dyslipidemia, chronic sinusitis, hypertension, Viqan-Naiakapbk-Wgitp syndrome status post ablation 1993, GERD, gastroparesis, vitamin B12 deficiency, history of hematuria, history of brachial plexus lesions, history of subacute bacterial endocarditis prophylaxis candidate presents with palpitations and found to be in rapid A-fib. Patient today when going to bed to sleep noticed heart palpitations. It happens once in a while but then will subside after short duration.. But today they were not subsiding and associated with chest discomfort which prompted patient to come to the ER. No shortness of breath. No dizziness. No headache. No runny nose or sore throat. No cough. No fevers. Appetite is okay. No nausea. No abdominal pain. Normal bowel and bladder movements. Patient generally active. On presentation heart rates were in 150s and blood pressure was high. Currently resting comfortably. Past medical history. As mentioned above. Past surgical history. Ablation of heart dysrhythmia in 1993 in [facility]. Cardiac cath. Colonoscopy. EGD with endoscopic ultrasound. Stomach lipoma removed. FNA left and right axilla. Laparoscopic cholecystectomy. Total abdominal hysterectomy with removal of tubes. Social history. . No smoking. Alcohol 2-3 drinks a month. No drug use. Family history. Father had asthma. Diabetes. Mother had diabetes. Heart disorder. Thyroid disorder. Paternal grandfather had childhood diabetes insulin-dependent. Allergies Allergy/AdvReac Type Severity Reaction Status Date / Time Cephalosporins Allergy Unknown KEFLEX Verified 01/19/25 01:26 cephalexin Allergy Rash Verified 01/19/25 01:27 [From Panixine DisperDose] pseudoephedrine AdvReac Mild RAPID HEART Verified 01/19/25 01:26 aspirin [From Percodan] AdvReac Hallucinati Verified 01/19/25 01:27 ng oxycodone [From Percodan] AdvReac Hallucinati Verified 01/19/25 01:27 ng Home Medications Medication Instructions Recorded Confirmed Type atorvastatin 20 mg tablet 20 mg PO DAILY #90 tabs 12/17/20 01/19/25 Rx cyanocobalamin (vitamin B-12) 1,000 mcg IM MONTHLY 12/14/22 01/19/25 History 1,000 mcg/mL injection solution empagliflozin 25 mg tablet 12 mg PO DAILY 12/14/22 01/19/25 History (Jardiance) losartan 25 mg tablet 25 mg PO DAILY 12/14/22 01/19/25 History albuterol sulfate 90 mcg/actuation 2 puff inhalation QID PRN 01/19/25 01/19/25 History aerosol inhaler Shortness Of Breath Or Wheezing azelastine 137 mcg (0.1 %) nasal 2 spray intranasal DAILY CONGESTION 01/19/25 01/19/25 History spray bupropion HCl 150 mg 24 hr tablet, 150 mg PO QAM 01/19/25 01/19/25 History extended release carvedilol 25 mg tablet 25 mg PO AMHS 01/19/25 01/19/25 History fluticasone 250 mcg-salmeterol 50 1 inh inhalation BID PRN Wheezing 01/19/25 01/19/25 History mcg/dose blistr powdr for inhalation (Advair Diskus) glimepiride 2 mg tablet 2 mg PO QDB 01/19/25 01/19/25 History metformin 500 mg tablet,extended 1,000 mg PO BIDM 01/19/25 01/19/25 History release 24 hr omeprazole 20 mg capsule,delayed 20 mg PO QAM 01/19/25 01/19/25 History release Past Med/Surg History Problem List (Updated 01/19/25 @ 06:08 by Brian Stacy PA-C) Atrial fibrillation with rapid ventricular response (Acute) Rapid atrial fibrillation Tricuspid regurgitation (Acute) Pancreatitis Asthma GERD (gastroesophageal reflux disease) (Acute 05/30/12) Depression (Acute) Dyslipidemia DM (diabetes mellitus) (Chronic) Gout Hypertension Mitral regurgitation Eqmfb-Bfrpjbrpy-Gnvyl syndrome Stress incontinence in female (Chronic) urogyn referral to [facility]. Gastroparesis due to DM Cervical radiculopathy at C8 (Acute) Medical History (Updated 01/19/25 @ 06:08 by Brian Stacy PA-C) Epigastric abdominal pain Cervical radiculopathy Cervical disc herniation Pancreatitis Surgical History H/O bladder repair surgery (~03/2019) S/P cervical spinal fusion (05/30/12) H/O heart surgery History of appendectomy Hx of cholecystectomy Hx of salpingo-oophorectomy, bilateral H/O: hysterectomy Family History Unknown No problems noted. Mother Ovarian cancer Diabetes Hypertension Heart disease Nephrolithiasis Stroke Father Heart disease Nephrolithiasis Myocardial infarction Diabetes Brother Heart disease Leukemia, acute monocytic Grandmother (Maternal) Stroke Grandmother (Paternal) Stroke Denies family history of Prostate cancer Breast cancer Lung cancer Colorectal cancer Social History Smoking Status: Never smoker Second Hand Exposure: No; Do You Dip or Chew Tobacco: No; Hx Alcohol Use: Yes Alcohol type: wine Alcohol Intake Frequency: Monthly or Less Hx Substance Use: No Preferred Language: Maltese Communication Ability: Effective Visual Impairment: No Limitations Hearing Ability: Normal Creative Producer Required: No Beliefs That Will Affect Care: None marital status: Current Living Situation: Spouse current occupational status: retired Other Information That Helps Us Care for You: No Feels Safe at Home: Yes Safety Concerns: Feels Safe At This Time Childhood Exposure to Second-Hand Smoke: Yes (father) Dental Care, Regularly: Yes Physical Activity Frequency: 3-4 Times per Week Physical Activity Frequency Comment: walking for 40 minutes Seatbelt Use: always Sunscreen Use: Yes (sometimes) Assistive Devices: Glasses Review of Systems Review of Systems: All systems reviewed & are unremarkable except as noted in HPI & below Physical Exam Physical Exam: General- Not in acute distress Head- atraumatic Eyes- PERRL. ENT- oropharynx clear Neck- supple, no JVD. Lungs- clear to auscultation no wheezing or crackles Heart- irregular rhythm;Tachycardia, no murmur, no gallop. Abdomen- normal bowel sounds, soft, nontender, no distension Extremities- no pretibial edema, no erythema seen. Neuro- alert, oriented PERRL, no facial palsy; no dysarthria; moves extremities Results & Data Results & Data Vital Signs (Past 12 Hours) Vital Signs Temp Pulse Pulse Resp BP BP Pulse Ox 01/19/25 02:10 140 H 16 124/102 H 97 01/19/25 01:15 140 H 162/113 H 01/19/25 01:02 133 H 01/19/25 01:00 132 H 144/113 H 01/19/25 00:41 152 H 185/121 H 01/19/25 00:18 151 H 01/19/25 00:16 97 01/19/25 00:13 159 H 18 176/106 H 97 01/18/25 23:57 36.9 C 103 H 18 161/102 H 95 O2 Del Method 01/19/25 02:10 Room Air 01/19/25 01:15 01/19/25 01:02 01/19/25 01:00 01/19/25 00:41 01/19/25 00:18 01/19/25 00:16 Room Air 01/19/25 00:13 Room Air 01/18/25 23:57 Room Air Diagnostic Findings Laboratory Results WBC 9.50 K/ul (4.8-10.8) 01/19/25 00:09 RBC 5.09 M/uL (4.20-5.40) 01/19/25 00:09 Hgb 15.6 g/dl (12.0-16.0) 01/19/25 00:09 Hct 46.5 % (37.0-47.0) 01/19/25 00:09 MCV 91.4 fL (80.0-100.0) 01/19/25 00:09 MCH 30.6 pg (25.0-34.0) 01/19/25 00:09 MCHC 33.5 g/dL (32.0-36.0) 01/19/25 00:09 RDW Std Deviation 42.1 fL (36.4-46.3) 01/19/25 00:09 RDW Coeff of Adolfo 12.8 % (11.5-14.5) 01/19/25 00:09 Plt Count 297 K/uL (130-400) 01/19/25 00:09 MPV 10.5 fL (9.4-12.4) 01/19/25 00:09 Immature Gran % (Auto) 0.2 % 01/19/25 00:09 Neut % (Auto) 47.1 % 01/19/25 00:09 Lymph % (Auto) 36.4 % 01/19/25 00:09 [place] % (Auto) 8.7 % 01/19/25 00:09 Eos % (Auto) 6.9 % 01/19/25 00:09 Baso % (Auto) 0.7 % 01/19/25 00:09 Neut # (Auto) 4.46 K/uL (1.40-6.50) 01/19/25 00:09 Lymph # (Auto) 3.46 K/uL (1.20-3.40) H 01/19/25 00:09 [place] # (Auto) 0.83 K/uL (0.11-0.59) H 01/19/25 00:09 Eos # (Auto) 0.66 K/uL (0.00-0.50) H 01/19/25 00:09 Baso # (Auto) 0.07 K/uL (0.00-0.20) 01/19/25 00:09 Immature Gran # (Auto) 0.02 K/uL (0.01-0.20) 01/19/25 00:09 PT 10.3 Seconds (9.0-12.0) 01/19/25 00:09 INR 0.9 (0.9-1.1) 01/19/25 00:09 APTT 25 Seconds (21-31) 01/19/25 00:09 PTT Ratio 0.9 01/19/25 00:09 Sodium 140 mmol/L (136-145) 01/19/25 00:09 Potassium 4.0 mmol/L (3.5-5.1) 01/19/25 00:09 Chloride 103 mmol/L (98-107) 01/19/25 00:09 Carbon Dioxide 25 mmol/L (21-32) 01/19/25 00:09 Anion Gap 12 (3-11) H 01/19/25 00:09 BUN 19 mg/dl (6-23) 01/19/25 00:09 Creatinine 0.98 mg/dl (0.6-1.2) 01/19/25 00:09 Est Cr Clr Drug Dosing 48.1 ml/min 01/19/25 00:09 eGFR 60.19 01/19/25 00:09 BUN/Creatinine Ratio 19.4 (10-20) 01/19/25 00:09 Glucose 134 mg/dl (70-99(Fasting)) H 01/19/25 00:09 Calcium 9.9 mg/dl (8.6-10.3) 01/19/25 00:09 Magnesium 1.7 mg/dl (1.7-2.4) 01/19/25 00:09 Total Bilirubin 0.4 mg/dl (0.2-1.0) 01/19/25 00:09 AST 22 U/L (13-39) 01/19/25 00:09 ALT 24 U/L (7-52) 01/19/25 00:09 Alkaline Phosphatase 86 U/L (34-104) 01/19/25 00:09 Troponin I High Sens 4.5 pg/ml (0-14) 01/19/25 00:09 Total Protein 8.4 gm/dl (6.0-8.3) H 01/19/25 00:09 Albumin 4.6 gm/dl (3.4-5.0) 01/19/25 00:09 Globulin 3.8 gm/dl (2.5-4.0) 01/19/25 00:09 Albumin/Globulin Ratio 1.2 (0.9-2) 01/19/25 00:09 Lipase 44 U/L (11-82) 01/19/25 00:09 TSH 4.823 uIu/ml (0.300-4.500) H 01/19/25 00:09 Free T4 0.86 ng/dl (0.61-1.60) 01/19/25 00:09 Urine Color Yellow 01/19/25 00:45 Urine Appearance Clear (Clear) 01/19/25 00:45 Urine pH 6.5 (4.5-7.5) 01/19/25 00:45 Ur Specific [place] 1.007 (1.000-1.030) 01/19/25 00:45 Urine Protein Negative (Negative) 01/19/25 00:45 Urine Glucose (UA) 2+ (Negative) H 01/19/25 00:45 Urine Ketones Negative (Negative) 01/19/25 00:45 Urine Blood Negative (Negative) 01/19/25 00:45 Urine Nitrite Negative (Negative) 01/19/25 00:45 Urine Bilirubin Negative (Negative) 01/19/25 00:45 Urine Urobilinogen Negative (Negative) 01/19/25 00:45 Ur Leukocyte Esterase Negative (Negative) 01/19/25 00:45 Urine Comment 01/19/25 00:45 Impressions Chest X-Ray 01/19/25 00:10 EXAM: XR chest 1V portable CLINICAL HISTORY: Chest pain, nonspecific. TECHNIQUE: An X-ray image of the chest is obtained in AP projection. COMPARISON: dated 01/14/2018. FINDINGS: Pulmonary Parenchyma: Mild peribronchial thickening with slightly increased bronchovascular markings in both lungs, due to infective-bronchitic versus congestive changes, interval new, Clinical and lab correlation suggested. No evidence of consolidation or collapse. No pulmonary nodules are identified. No evidence of pleural effusion or pleural thickening. Heart and Mediastinum: The heart size appears mildly enlarged. No mediastinal widening or masses. No hilar or mediastinal lymphadenopathy. Bony Thorax: Bony thorax appears intact without fractures or deformities. A metallic fixator is seen in the upper thoracic spine. Soft Tissues: Soft tissues overlying the chest wall are unremarkable. Overlying chest leads are seen. IMPRESSION: 1. Mild peribronchial thickening with slightly increased bronchovascular markings in both lungs, due to infective-bronchitic versus congestive changes, interval new, Clinical and lab correlation suggested. 2. No pleural effusion seen. Electronically signed by Donnie Melgar 01-19-2025 01:49 AM ECG Additional Comments: ECG. Atrial fibrillation with rapid ventricular response rate of 157. Nonspecific ST and T abnormalities.. ST depressions in lateral leads. QTc 449. Code Status & VTE Plan VTE Prophylaxis Plan VTE Prophylaxis will be ordered: Yes
--- NOTE | 2025-01-19 03:32 | Emergency Department Note ---
History of Present Illness General Chief complaint: Chest Pain Stated complaint: heart paplitation, chest discomfort Time Seen by Provider: 01/19/25 00:21 History of Present Illness This is a 75-year-old female presenting to the emergency department for evaluation of heart palpitations and chest discomfort. Patient symptoms began within the past 2 hours, and she states that she has a previous cardiac history of WPW with ablation in the . The patient has not had any recent illness such as fevers, chills, coughing, or flulike symptoms. No recent travel history. Patient symptoms seem to worsen when she stands and ambulates. She rates her discomfort a 5/10. Home Medications Medication Instructions Recorded Confirmed Type atorvastatin 20 mg tablet 20 mg PO DAILY #90 tabs 12/17/20 01/19/25 Rx cyanocobalamin (vitamin B-12) 1,000 mcg IM MONTHLY 12/14/22 01/19/25 History 1,000 mcg/mL injection solution empagliflozin 25 mg tablet 12 mg PO DAILY 12/14/22 01/19/25 History (Jardiance) albuterol sulfate 90 mcg/actuation 2 puff inhalation QID PRN 01/19/25 01/19/25 History aerosol inhaler Shortness Of Breath Or Wheezing apixaban 5 mg tablet (Eliquis) 5 mg PO BID #60 tabs 01/19/25 Rx azelastine 137 mcg (0.1 %) nasal 2 spray intranasal DAILY CONGESTION 01/19/25 01/19/25 History spray bupropion HCl 150 mg 24 hr tablet, 150 mg PO QAM 01/19/25 01/19/25 History extended release fluticasone 250 mcg-salmeterol 50 1 inh inhalation BID PRN Wheezing 01/19/25 01/19/25 History mcg/dose blistr powdr for inhalation (Advair Diskus) glimepiride 2 mg tablet 2 mg PO QDB 01/19/25 01/19/25 History losartan 50 mg tablet 50 mg PO DAILY #30 tabs 01/19/25 Rx magnesium chloride 64 mg 64 mg PO BID #60 tabs 01/19/25 Rx (magnesium chloride) tablet,delayed release metformin 500 mg tablet,extended 1,000 mg PO BIDM 01/19/25 01/19/25 History release 24 hr metoprolol succinate 50 mg 50 mg PO BID #60 tabs 01/19/25 Rx tablet,extended release 24 hr omeprazole 20 mg capsule,delayed 20 mg PO QAM 01/19/25 01/19/25 History release Allergies Allergy/AdvReac Type Severity Reaction Status Date / Time Cephalosporins Allergy Unknown KEFLEX Verified 01/19/25 01:26 cephalexin Allergy Rash Verified 01/19/25 01:27 [From Panixine DisperDose] pseudoephedrine AdvReac Mild RAPID HEART Verified 01/19/25 01:26 aspirin [From Percodan] AdvReac Hallucinati Verified 01/19/25 01:27 ng oxycodone [From Percodan] AdvReac Hallucinati Verified 01/19/25 01:27 ng Past Med/Surg History Problem List Atrial fibrillation with rapid ventricular response (Acute) Rapid atrial fibrillation Tricuspid regurgitation (Acute) Pancreatitis Asthma GERD (gastroesophageal reflux disease) (Acute 05/30/12) Depression (Acute) Dyslipidemia DM (diabetes mellitus) (Chronic) Gout Hypertension Mitral regurgitation Slibr-Pswvywfto-Ncpmm syndrome Stress incontinence in female (Chronic) urogyn referral to [facility]. Gastroparesis due to DM Cervical radiculopathy at C8 (Acute) Medical History Epigastric abdominal pain Cervical radiculopathy Cervical disc herniation Pancreatitis Surgical History H/O bladder repair surgery (~03/2019) S/P cervical spinal fusion (05/30/12) H/O heart surgery History of appendectomy Hx of cholecystectomy Hx of salpingo-oophorectomy, bilateral H/O: hysterectomy Family History Unknown No problems noted. Mother Ovarian cancer Diabetes Hypertension Heart disease Nephrolithiasis Stroke Father Heart disease Nephrolithiasis Myocardial infarction Diabetes Brother Heart disease Leukemia, acute monocytic Grandmother (Maternal) Stroke Grandmother (Paternal) Stroke Denies family history of Prostate cancer Breast cancer Lung cancer Colorectal cancer Social History Smoking Status: Never smoker Second Hand Exposure: No; Do You Dip or Chew Tobacco: No; Hx Alcohol Use: Yes Alcohol type: wine Alcohol Intake Frequency: Monthly or Less Hx Substance Use: No Preferred Language: Amharic Communication Ability: Effective Visual Impairment: No Limitations Hearing Ability: Normal General Farmer Required: No Beliefs That Will Affect Care: None marital status: Current Living Situation: Spouse current occupational status: retired Feels Safe at Home: Yes Childhood Exposure to Second-Hand Smoke: Yes (father) Dental Care, Regularly: Yes Physical Activity Frequency: 3-4 Times per Week Physical Activity Frequency Comment: walking for 40 minutes Seatbelt Use: always Sunscreen Use: Yes (sometimes) Assistive Devices: None Review of Systems A total of 10 systems reviewed and were otherwise negative Physical Exam Vital Signs Vital Signs - 24 hr 01/18/25 23:57 01/19/25 00:13 01/19/25 00:16 Temperature 36.9 C Temperature Source Temporal Artery Scan Pulse Rate 103 H Pulse Rate [Apical] 159 H Pulse Rhythm Regular Pulse Strength Normal Respiratory Rate 18 18 Respiratory Effort / Characteristics Non-Labored Spontaneous Respiratory Depth Normal Respiratory Pattern Regular Blood Pressure 161/102 H Blood Pressure [Right Arm] 176/106 H Blood Pressure Mean 121 Blood Pressure Mean [Right Arm] 129 Pulse Oximetry 95 97 97 Oxygen Delivery Method Room Air Room Air Room Air Sepsis Recent Fever Within 48 Hours No Sepsis New/Unexplained Change in Mental Status No Sepsis Action Taken by Nursing No Action Required 01/19/25 00:18 01/19/25 00:41 01/19/25 01:00 Temperature Temperature Source Pulse Rate 151 H 152 H 132 H Pulse Rate [Apical] Pulse Rhythm Pulse Strength Respiratory Rate Respiratory Effort / Characteristics Respiratory Depth Respiratory Pattern Blood Pressure 185/121 H 144/113 H Blood Pressure [Right Arm] Blood Pressure Mean Blood Pressure Mean [Right Arm] Pulse Oximetry Oxygen Delivery Method Sepsis Recent Fever Within 48 Hours Sepsis New/Unexplained Change in Mental Status Sepsis Action Taken by Nursing 01/19/25 01:02 01/19/25 01:15 Temperature Temperature Source Pulse Rate 133 H 140 H Pulse Rate [Apical] Pulse Rhythm Pulse Strength Respiratory Rate Respiratory Effort / Characteristics Respiratory Depth Respiratory Pattern Blood Pressure 162/113 H Blood Pressure [Right Arm] Blood Pressure Mean Blood Pressure Mean [Right Arm] Pulse Oximetry Oxygen Delivery Method Sepsis Recent Fever Within 48 Hours Sepsis New/Unexplained Change in Mental Status Sepsis Action Taken by Nursing VITALS: Vitals are noted on the nurse's note and reviewed by myself. Vital signs stable. GENERAL: Well-developed, well-nourished, white female, who is in no acute distress and resting comfortably. Patient is cooperative with the examination. HEAD: Normocephalic atraumatic. NECK: Supple without nuchal rigidity. No lymphadenopathy. No thyromegaly. Cervical spine is nontender. HEART: Irregularly irregular LUNGS: Clear to auscultation bilaterally without wheezes, rales or rhonchi. No retractions or accessory muscle use. ABDOMEN: Positive normal bowel sounds x 4. Soft, nontender, without masses or organomegaly. No guarding or rebound tenderness. MUSCULOSKELETAL: No muscle atrophy, erythema, or edema noted. Full range of motion in all extremities. Course Administered Medications Discontinued Medications Acetaminophen (Acetaminophen 325 Mg Tab) 650 mg PO Q4H PRN PRN Reason: Pain or Fever Stop: 02/18/25 04:21 Last Admin: 01/19/25 07:52 Dose: 650 mg Documented By: CLEO Apixaban (Apixaban 5 Mg Tablet) 5 mg PO BID MARCIA Stop: 02/18/25 10:29 Last Admin: 01/19/25 11:14 Dose: 5 mg Documented By: CLEO Atorvastatin Calcium (Atorvastatin 20 Mg Tab) 20 mg PO DAILY MARCIA Stop: 02/18/25 08:59 Last Admin: 01/19/25 09:08 Dose: 20 mg Documented By: CLEO Azelastine HCl (Azelastine Hcl 0.1% Nasal 200 Sprays/27,400 Mcg Btl) 2 sprays NA DAILY MARCIA Stop: 02/18/25 08:59 Last Admin: 01/19/25 09:08 Dose: 2 sprays Documented By: CLEO Bupropion HCl (Bupropion Xl 150 Mg Tabcr) 150 mg PO QAM MARCIA Stop: 02/18/25 08:59 Last Admin: 01/19/25 09:08 Dose: 150 mg Documented By: CLEO Fluticasone/Vilanterol (Fluticasone/Vilanterol 100/25mcg 14 Puffs/Inhaler) 1 puffs INH DAILY MARCIA Stop: 02/18/25 08:59 Last Admin: 01/19/25 09:08 Dose: 1 puffs Documented By: CLEO Sodium Chloride (Nss) 1,000 mls @ 999 mls/hr IV .Q1H1M ONE Stop: 01/19/25 01:27 Last Infusion: 01/19/25 03:02 Dose: Infused Documented By: Admin: 01/19/25 00:41 Dose: 999 mls/hr Documented By: LUCY Magnesium Sulfate/Dextrose (Magnesium Sulfate / D5w) 1 gm in 100 mls @ 50 mls/hr IV ONE ONE Stop: 01/19/25 09:55 Last Infusion: 01/19/25 11:16 Dose: Infused Documented By: Admin: 01/19/25 09:11 Dose: 50 mls/hr Documented By: CLEO Insulin Aspart (Insulin Aspart Per Unit Charge) 0 units SC Q6 MARCIA Stop: 02/18/25 05:59 Last Admin: 01/19/25 05:33 Dose: Not Given Documented By: YUNIOR Insulin Aspart (Insulin Aspart Per Unit Charge) 0 units SC ACHS MARCIA Stop: 02/18/25 11:29 Last Admin: 01/19/25 12:25 Dose: 3 units Documented By: CLEO Co-signed By: PRANEETH Labetalol HCl (Labetalol Hcl Iv 5 Mg/Ml 20ml) 5 mg IV NOW STA Stop: 01/19/25 00:35 Last Admin: 01/19/25 00:41 Dose: 5 mg Documented By: LUCY Labetalol HCl (Labetalol Hcl Iv 5 Mg/Ml 20ml) 5 mg IV NOW STA Stop: 01/19/25 00:55 Last Admin: 01/19/25 01:02 Dose: 5 mg Documented By: LUCY Losartan Potassium (Losartan Potassium 25 Mg Tab) 25 mg PO DAILY MARCIA Stop: 02/18/25 08:59 Last Admin: 01/19/25 09:07 Dose: 25 mg Documented By: CLEO Metoprolol Succinate (Metoprolol Succ 25mg Ext Rel Tab) 25 mg PO QAM MARCIA Stop: 02/18/25 09:59 Last Admin: 01/19/25 11:14 Dose: 25 mg Documented By: CLEO Metoprolol Succinate (Metoprolol Succ 25mg Ext Rel Tab) 25 mg PO NOW ONE Stop: 01/19/25 12:35 Last Admin: 01/19/25 13:01 Dose: 25 mg Documented By: CLEO Metoprolol Tartrate (Metoprolol Tartrate 1 Mg/Ml Vial) 5 mg IV NOW STA Stop: 01/19/25 01:04 Last Admin: 01/19/25 04:49 Dose: Not Given Documented By: YUNIOR Pantoprazole Sodium (Pantoprazole 40 Mg Tab) 40 [facility] [place]: 02/18/25 08:59 Last Admin: 01/19/25 09:08 Dose: 40 mg Documented By: CLEO Medical Decision Making Differential Diagnosis Differential diagnosis includes, but is not limited to: Myocardial infarction, dysrhythmia, pericarditis, pneumothorax, aortic aneurysm/dissection, DVT/PE, anxiety, GERD, PUD, electrolyte imbalance, thyroid disorder, pneumonia, bronchitis, pancreatitis, and others Laboratory Data 01/19/25 05:29 01/19/25 05:29 Lab Results 01/19/25 01/19/25 Range/Units 00:09 00:45 WBC 9.50 (4.8-10.8) K/ul RBC 5.09 (4.20-5.40) M/uL Hgb 15.6 (12.0-16.0) g/dl Hct 46.5 (37.0-47.0) % MCV 91.4 (80.0-100.0) fL MCH 30.6 (25.0-34.0) pg MCHC 33.5 (32.0-36.0) g/dL RDW Std Deviation 42.1 (36.4-46.3) fL RDW Coeff of Adolfo 12.8 (11.5-14.5) % Plt Count 297 (130-400) K/uL MPV 10.5 (9.4-12.4) fL Immature Gran % (Auto) 0.2 % Neut % (Auto) 47.1 % Lymph % (Auto) 36.4 % [place] % (Auto) 8.7 % Eos % (Auto) 6.9 % Baso % (Auto) 0.7 % Neut # (Auto) 4.46 (1.40-6.50) K/uL Lymph # (Auto) 3.46 H (1.20-3.40) K/uL [place] # (Auto) 0.83 H (0.11-0.59) K/uL Eos # (Auto) 0.66 H (0.00-0.50) K/uL Baso # (Auto) 0.07 (0.00-0.20) K/uL Immature Gran # (Auto) 0.02 (0.01-0.20) K/uL PT 10.3 (9.0-12.0) Seconds INR 0.9 (0.9-1.1) APTT 25 (21-31) Seconds PTT Ratio 0.9 Sodium 140 (136-145) mmol/L Potassium 4.0 (3.5-5.1) mmol/L Chloride 103 (98-107) mmol/L Carbon Dioxide 25 (21-32) mmol/L Anion Gap 12 H (3-11) BUN 19 (6-23) mg/dl Creatinine 0.98 (0.6-1.2) mg/dl Est Cr Clr Drug Dosing 48.1 ml/min eGFR 60.19 BUN/Creatinine Ratio 19.4 (10-20) Glucose 134 H (70-99(Fasting)) mg/dl Calcium 9.9 (8.6-10.3) mg/dl Magnesium 1.7 (1.7-2.4) mg/dl Total Bilirubin 0.4 (0.2-1.0) mg/dl AST 22 (13-39) U/L ALT 24 (7-52) U/L Alkaline Phosphatase 86 (34-104) U/L Troponin I High Sens 4.5 (0-14) pg/ml Total Protein 8.4 H (6.0-8.3) gm/dl Albumin 4.6 (3.4-5.0) gm/dl Globulin 3.8 (2.5-4.0) gm/dl Albumin/Globulin Ratio 1.2 (0.9-2) Lipase 44 (11-82) U/L TSH 4.823 H (0.300-4.500) uIu/ml Free T4 0.86 (0.61-1.60) ng/dl Urine Color Yellow Urine Appearance Clear (Clear) Urine pH 6.5 (4.5-7.5) Ur Specific [place] 1.007 (1.000-1.030) Urine Protein Negative (Negative) Urine Glucose (UA) 2+ H (Negative) Urine Ketones Negative (Negative) Urine Blood Negative (Negative) Urine Nitrite Negative (Negative) Urine Bilirubin Negative (Negative) Urine Urobilinogen Negative (Negative) Ur Leukocyte Esterase Negative (Negative) Urine Comment Imaging Data Radiologist's Impression: Chest X-Ray 01/19/25 00:10 EXAM: XR chest 1V portable CLINICAL HISTORY: Chest pain, nonspecific. TECHNIQUE: An X-ray image of the chest is obtained in AP projection. COMPARISON: CR dated 01/14/2018. FINDINGS: Pulmonary Parenchyma: Mild peribronchial thickening with slightly increased bronchovascular markings in both lungs, due to infective-bronchitic versus congestive changes, interval new, Clinical and lab correlation suggested. No evidence of consolidation or collapse. No pulmonary nodules are identified. No evidence of pleural effusion or pleural thickening. Heart and Mediastinum: The heart size appears mildly enlarged. No mediastinal widening or masses. No hilar or mediastinal lymphadenopathy. Bony Thorax: Bony thorax appears intact without fractures or deformities. A metallic fixator is seen in the upper thoracic spine. Soft Tissues: Soft tissues overlying the chest wall are unremarkable. Overlying chest leads are seen. IMPRESSION: 1. Mild peribronchial thickening with slightly increased bronchovascular markings in both lungs, due to infective-bronchitic versus congestive changes, interval new, Clinical and lab correlation suggested. 2. No pleural effusion seen. Electronically signed by Donnie Melgar 01-19-2025 01:49 AM ECG Data Attestation: I personally reviewed and interpreted this ECG as follows: Indication: + palpitations Additional Comments: Atrial fibrillation with rapid ventricular response at 157 bpm Nonspecific T wave abnormality When compared to EKG 14 January 2018, atrial fibrillation has replaced sinus rhythm MDM Narrative Physical exam and history were performed. Nursing notes, EMR, and Medication List were personally reviewed. No social concerns were identified as barriers to patients care. History was provided by the Patient and who was at bedside. Patient appears to have tachycardia and palpitations bring her to the ER. Patient was seen immediately on her arrival to her ER room. EKG does show A-fib with RVR. IV access was established and labs were obtained. Patient was hydrated normal saline. Case discussed with my attending. Patient was ordered IV labetalol, which did not abort her A-fib. She was ultimately given IV Lopressor. An order was placed for continuous cardiac monitoring. The monitor shows a rate of 132 with atrial fibrillation rhythm. Patient's blood work as above and was reviewed. She does not have a significant elevated white blood cell count, gross anemia, bandemia, or significant electrolyte imbalance. Transaminases not diagnostic. Troponin x 1 is negative. Escalation of care was considered, and felt to be necessary. She is not currently anticoagulated and has new onset A-fib with RVR. [facility] to evaluate the patient here in the ER. Please see their dictation for further patient course, plan, and disposition. The chart was completed utilizing [employer] Speech Voice Recognition Software. Grammatical errors, random word insertions, pronoun errors, and incomplete sentences are an occasional consequence of this system due to software limitations, ambient noise, and hardware issues. Any formal questions or concerns about the content, text, or information contained within the body of this dictation should be directly addressed to the provider for clarification. Impression & Plan Atrial fibrillation with rapid ventricular response Discharge Plan Visit Data Chief Complaint: Chest Pain Stated Complaint: heart paplitation, chest discomfort ED Provider: Avtar Victor ED Midlevel Provider: Brian Stacy Discharge Problem: Atrial fibrillation with rapid ventricular response Patient Disposition: Admitted As Inpatient Condition: Fair Discharge Instructions Interventions: ED Discharge Assessment Last Done: 01/19/25 03:44 Addendum January 19, 2025 20:54 I was consulted by the Advanced Practice Provider and was substantively involved in the patient's visit.This includes aspects of the HPI, MDM, diagnostic interpretations, and disposition/plan. I discussed the case with the EDGARD and agree with the findings and plan as documented in EDGARD Tawanna's note.
[2025-01-19] MEDS ORDERED: CARBOHYDRATES FOR HYPOGLYCEMIA PO PRN (04:22)
[2025-01-19] MEDS ORDERED: GLUCOSE 40% GEL 15 GM TUBE PO PRN (04:22)
[2025-01-19] MEDS ORDERED: ALBUTEROL HFA 8 GM INHALER INH PRN (04:22)
[2025-01-19] MEDS ORDERED: NITROGLYCERIN SL 0.4 MG/TAB TAB SL PRN (04:22)
[2025-01-19] MEDS ORDERED: GLUCAGON FOR INJ 1 MG VIAL SQ PRN (04:22)
[2025-01-19] MEDS ORDERED: DEXTROSE 50% 50 ML SYRINGE IV PRN (04:22)
[2025-01-19] MEDS ORDERED: GLUCOSE 10 TAB/TUBE PO PRN (04:22)
[2025-01-19] MEDS ORDERED: POLYETHYLENE (MIRALAX) 17 GM PACK PO PRN (04:22)
[2025-01-19] MEDS ORDERED: METOPROLOL TARTRATE 1 MG/ML VIAL IV PRN (04:22)
[2025-01-19 04:48] VITALS: RESP 18; TEMP 97.7
[2025-01-19] MEDS: METOPROLOL TARTRATE 1 MG/ML VIAL IV STA (04:49)
[2025-01-19] MEDS: INSULIN ASPART PER UNIT CHARGE SC SCH ×2 (05:33→12:25)
[2025-01-19 05:47] LABS: Hematocrit (blood only) 39.9 % (37.0-47.0); Hemoglobin 13.4 g/dl (12.0-16.0); Immature Granulocytes # (auto) 0.02 K/uL (0.01-0.20); Immature Granulocytes % (auto) 0.2 %; Mean Corpuscular Hemoglobin 30.5 pg (25.0-34.0); Mean Corpuscular Volume 90.9 fL (80.0-100.0); Platelet Count 244 K/uL (130-400); RDW Standard Deviation 42.3 fL (36.4-46.3); Red Blood Count 4.39 M/uL (4.20-5.40); White Blood Count 8.26 K/ul (4.8-10.8)
[2025-01-19 06:04] LABS: Anion Gap 6.0 (3-11); Blood Urea Nitrogen 17.0 mg/dl (6-23); Calcium 9.0 mg/dl (8.6-10.3); Carbon Dioxide 27.0 mmol/L (21-32); Chloride 109.0 mmol/L (98-107); Creatinine Clr Calc Pharmacy 56.7 ml/min; Glucose 144.0 mg/dl (70-99(Fasting)); Magnesium 1.7 mg/dl (1.7-2.4); Potassium 4.0 mmol/L (3.5-5.1); Sodium 142.0 mmol/L (136-145)
[2025-01-19 07:50] LABS: Hemoglobin A1C 7.3 % (4.5-5.6)
[2025-01-19] MEDS: ACETAMINOPHEN 325 MG TAB PO PRN (07:52)
[2025-01-19] MEDS: LOSARTAN POTASSIUM 25 MG TAB PO SCH (09:07)
[2025-01-19] MEDS: ATORVASTATIN 20 MG TAB PO SCH (09:08)
[2025-01-19] MEDS: FLUTICASONE/VILANTEROL 100/25MCG 14 PUFFS/INHALER INH SCH (09:08)
[2025-01-19] MEDS: AZELASTINE HCL 0.1% NASAL 200 SPRAYS/27,400 MCG BTL SCH (09:08)
[2025-01-19] MEDS: MAGNESIUM SULFATE / D5W 1 GM/100 ML BAG IV ONE (09:11)
[2025-01-19] MEDS ORDERED: Nursing to Pharmacy Communication SCH (10:30)
--- NOTE | 2025-01-19 10:53 | Cardiology Consultation ---
Date of Consultation January 19, 2025 Assessment & Plan (1) Atrial fibrillation with rapid ventricular response: 75-year-old female presents with an episode of highly symptomatic atrial fibrillation with rapid ventricular response. Her blood pressure was elevated on presentation. Blood pressure improved, and patient converted to sinus rhythm having received IV labetalol. On further discussion, it was unlike the patient has had recent brief symptoms suggesting that she has had another episodes. I think her symptoms of chest pressure may be explained by the atrial fibrillation with rapid ventricular response. Her initial troponin was 4.5 and increased to 9.6 PG per mL over a 5-hour interval last evening. Will proceed with a third level to be drawn at 11:30 AM. The patient's echocardiogram reveals normal LVEF and regional wall motion abnormalities. Her [id number] score is 5 for risk factors of female sex, age over 75 (2 points), hypertension, diabetes predicting a high risk of cardioembolic stroke. Would therefore recommend the addition of anticoagulation, Eliquis 5 mg twice daily for stroke prophylaxis. Although the patient has a history of preexcitation multiple Parkinson White, recent EKG tracings dating back to 2020 without evidence of preexcitation. EKG overnight last night revealed atrial fibrillation with narrow QRS complexes, I do think in this case would be reasonable for her to be on metoprolol succinate 25 mg daily. (2) Hypertension: Continue prior to hospital treatment with losartan 25 mg daily DYSLIPIDEMIA Continue atorvastatin 20 mg daily. --Further recommendations will be forthcoming after the results of the troponin are available. I spent a total of 60 minutes on the date of service in preparation, delivery, and documentation of the care provided to this patient, excluding any time spent in the performance of separately billed services. Yolanda Mcdaniels DO History of Present Illness Attending Physician: Pro Reddy MD History of Present Illness Flaquita Vera is a 75 year old female seen in cardiology consultation per the request of Dr Luna for the evaluaiton of highly symptomatic atrial fibrillation with rapid ventricular response. The patient states that yesterday she was in her normal state of health and at about 1015 while getting ready for bed she had abrupt onset of a sensation of feeling her heart pounding with a pressure sensation in her chest that radiated toward her left neck. She checked her blood pressure with her home blood pressure cuff and the reading was very elevated. With minimal activity her symptoms were worse. After 2 hours she presented to the emergency department. Initial blood pressure obtained 01/18/2025 at 2357 was 161 /102 mm Hg, with r epeat reading shortly thereafter of 185/121 mm Hg EKG performed on arrival 01/19/2025 at 12:05 AM revealed atrial fibrillation with rapid ventricular response, 157 bpm, nonspecific repolarization abnormalities most prominent in the inferior lateral leads. The QRS complexes were narrow with QRS duration of 78 ms. Due to hypertension as well as tachycardia she initially received boluses of IV labetalol with subsequent conversion to sinus rhythm without conversion pause observed on telemetry at 3 AM. Repeat EKG performed today 01/19/2025 at 10:10 AM and reviewed/interpreted independently reveals sinus rhythm at 69 bpm with normal OR interval of 166 ms, normal QRS duration of 80 ms, and no evidence of preexcitation. The corrected QT interval is also normal at 435 ms. Patient states that she feels much better now that she is back in sinus rhythm. On further discussion she had some transient dizziness earlier in the day prior to presentation. She states that she is physically active and typically walks quickly and at times feels very brief sensation of palpitations/chest pressure that in retrospect are reminiscent of that which she felt to a greater degree with the sustained atrial fibrillation episode overnight. 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 Allergies Allergy/AdvReac Type Severity Reaction Status Date / Time Cephalosporins Allergy Unknown KEFLEX Verified 01/19/25 01:26 cephalexin Allergy Rash Verified 01/19/25 01:27 [From Panixine DisperDose] pseudoephedrine AdvReac Mild RAPID HEART Verified 01/19/25 01:26 aspirin [From Percodan] AdvReac Hallucinati Verified 01/19/25 01:27 ng oxycodone [From Percodan] AdvReac Hallucinati Verified 01/19/25 01:27 ng Home Medications Medication Instructions Recorded Confirmed Type atorvastatin 20 mg tablet 20 mg PO DAILY #90 tabs 12/17/20 01/19/25 Rx cyanocobalamin (vitamin B-12) 1,000 mcg IM MONTHLY 12/14/22 01/19/25 History 1,000 mcg/mL injection solution empagliflozin 25 mg tablet 12 mg PO DAILY 12/14/22 01/19/25 History (Jardiance) losartan 25 mg tablet 25 mg PO DAILY 12/14/22 01/19/25 History albuterol sulfate 90 mcg/actuation 2 puff inhalation QID PRN 01/19/25 01/19/25 History aerosol inhaler Shortness Of Breath Or Wheezing azelastine 137 mcg (0.1 %) nasal 2 spray intranasal DAILY CONGESTION 01/19/25 01/19/25 History spray bupropion HCl 150 mg 24 hr tablet, 150 mg PO QAM 01/19/25 01/19/25 History extended release carvedilol 25 mg tablet 25 mg PO AMHS 01/19/25 01/19/25 History fluticasone 250 mcg-salmeterol 50 1 inh inhalation BID PRN Wheezing 01/19/25 01/19/25 History mcg/dose blistr powdr for inhalation (Advair Diskus) glimepiride 2 mg tablet 2 mg PO QDB 01/19/25 01/19/25 History metformin 500 mg tablet,extended 1,000 mg PO BIDM 01/19/25 01/19/25 History release 24 hr omeprazole 20 mg capsule,delayed 20 mg PO QAM 01/19/25 01/19/25 History release Patient History Medical History Epigastric abdominal pain Cervical radiculopathy Cervical disc herniation Pancreatitis Surgical History H/O bladder repair surgery (~03/2019) S/P cervical spinal fusion (05/30/12) H/O heart surgery History of appendectomy Hx of cholecystectomy Hx of salpingo-oophorectomy, bilateral H/O: hysterectomy Family History Unknown No problems noted. Mother Ovarian cancer Diabetes Hypertension Heart disease Nephrolithiasis Stroke Father Heart disease Nephrolithiasis Myocardial infarction Diabetes Brother Heart disease Leukemia, acute monocytic Grandmother (Maternal) Stroke Grandmother (Paternal) Stroke Denies family history of Prostate cancer Breast cancer Lung cancer Colorectal cancer Social History Smoking Status: Never smoker Second Hand Exposure: No; Do You Dip or Chew Tobacco: No; Hx Alcohol Use: Yes Alcohol type: wine Alcohol Intake Frequency: Monthly or Less Hx Substance Use: No Preferred Language: Bulgarian Communication Ability: Effective Visual Impairment: No Limitations Hearing Ability: Normal 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 Beliefs That Will Affect Care: None marital status: Current Living Situation: Spouse current occupational status: retired Other Information That Helps Us Care for You: No Feels Safe at Home: Yes Safety Concerns: Feels Safe At This Time Childhood Exposure to Second-Hand Smoke: Yes (father) Dental Care, Regularly: Yes Physical Activity Frequency: 3-4 Times per Week Physical Activity Frequency Comment: walking for 40 minutes Seatbelt Use: always Sunscreen Use: Yes (sometimes) Assistive Devices: Glasses Review of Systems Review of Systems: All systems reviewed & are unremarkable except as noted in HPI & below Physical Exam Physical Exam: Temp Pulse Resp BP Pulse Ox O2 Del Method 36.5 C 71 18 124/82 95 Room Air 01/19/25 08:37 01/19/25 08:37 01/19/25 08:37 01/19/25 08:37 01/19/25 08:37 01/19/25 08:37 General: no acute distress and stated age Eyes: conjunctiva are pink and non-injected, sclera clear Neck: normal jugular venous pulse, no hepatojugular reflux Chest: normal shape and normal respiratory effort Lungs: clear to auscultation and percussion Cardiac Exam: -Regular rhythm, no murmurs, rubs, or gallops, no jugular venous distention Abdomen: abdomen soft, non-tender, no abnormal masses and no hepatosplenomegaly Extremities: no edema and no cyanosis Neuro:awake, conversant, follows commands, no focal motor deficits Psych: appropriate affect and insight. Results & Data Vital Signs (Past 12 Hours) Vital Signs Temp Pulse Pulse Resp BP BP Pulse Ox 01/19/25 08:37 36.5 C 71 18 124/82 95 01/19/25 07:04 67 01/19/25 06:30 74 01/19/25 04:42 36.5 C 78 18 149/83 H 96 01/19/25 04:38 01/19/25 03:44 77 16 117/75 95 01/19/25 03:01 84 16 130/94 94 01/19/25 02:10 140 H 16 124/102 H 97 01/19/25 01:15 140 H 162/113 H 01/19/25 01:02 133 H 01/19/25 01:00 132 H 144/113 H 01/19/25 00:41 152 H 185/121 H 01/19/25 00:18 151 H 01/19/25 00:16 97 01/19/25 00:13 159 H 18 176/106 H 97 01/18/25 23:57 36.9 C 103 H 18 161/102 H 95 O2 Del Method 01/19/25 08:37 Room Air 01/19/25 07:04 01/19/25 06:30 01/19/25 04:42 Room Air 01/19/25 04:38 Room Air 01/19/25 03:44 Room Air 01/19/25 03:01 Room Air 01/19/25 02:10 Room Air 01/19/25 01:15 01/19/25 01:02 01/19/25 01:00 01/19/25 00:41 01/19/25 00:18 01/19/25 00:16 Room Air 01/19/25 00:13 Room Air 01/18/25 23:57 Room Air Laboratory Results Cardiac Enzymes 01/19/25 01/19/25 Range/Units 00:09 05:29 AST 22 (13-39) U/L Troponin I High Sens 4.5 9.6 D (0-14) pg/ml Coagulation 01/19/25 Range/Units 00:09 PT 10.3 (9.0-12.0) Seconds APTT 25 (21-31) Seconds CBC 01/19/25 01/19/25 Range/Units 00:09 05:29 WBC 9.50 8.26 (4.8-10.8) K/ul RBC 5.09 4.39 (4.20-5.40) M/uL Hgb 15.6 13.4 (12.0-16.0) g/dl Hct 46.5 39.9 (37.0-47.0) % Plt Count 297 244 (130-400) K/uL Neut # (Auto) 4.46 4.57 (1.40-6.50) K/uL Lymph # (Auto) 3.46 H 2.41 (1.20-3.40) K/uL [place] # (Auto) 0.83 H 0.71 H (0.11-0.59) K/uL Eos # (Auto) 0.66 H 0.50 (0.00-0.50) K/uL Baso # (Auto) 0.07 0.05 (0.00-0.20) K/uL Comprehensive Metabolic Panel 01/19/25 01/19/25 Range/Units 00:09 05:29 Sodium 140 142 (136-145) mmol/L Potassium 4.0 4.0 (3.5-5.1) mmol/L Chloride 103 109 H (98-107) mmol/L Carbon Dioxide 25 27 (21-32) mmol/L BUN 19 17 (6-23) mg/dl Creatinine 0.98 0.83 (0.6-1.2) mg/dl Glucose 134 H 144 H (70-99(Fasting)) mg/dl Calcium 9.9 9.0 (8.6-10.3) mg/dl AST 22 (13-39) U/L ALT 24 (7-52) U/L Alkaline Phosphatase 86 (34-104) U/L Total Protein 8.4 H (6.0-8.3) gm/dl Albumin 4.6 (3.4-5.0) gm/dl Diagnostic Findings Summary of transthoracic echocardiogram performed 01/19/2025: There is normal left ventricular wall thickness. No regional wall motion abnormalities noted. Left ventricular systolic function is normal. Left Ventricular Ejection Fraction = 55-60%. The right ventricle is normal in size and function. There is moderate tricuspid regurgitation. The pulmonary artery systolic pressure is estimated to be 38 mmHg (mildly elevated). Diastolic dysfunction, Grade II (pseudonormalization pattern). Coding Level of Care Code 64323 IN/OBS CONSULT LVL 4,60M Diagnoses Atrial fibrillation with rapid ventricular response I48.91 Hypertension I10
[2025-01-19 11:14] VITALS: O2SAT 96
[2025-01-19] MEDS: METOPROLOL SUCC 25MG EXT REL TAB PO SCH (11:14)
[2025-01-19] MEDS: APIXABAN 5 MG TABLET PO SCH (11:14)
--- NOTE | 2025-01-19 12:27 | Hospitalist Progress Note ---
Date of Service January 19, 2025 Assessment & Plan (1) Rapid atrial fibrillation: Plan: 75-year-old female with past medical history significant for type 2 diabetes, mixed dyslipidemia, chronic sinusitis, hypertension, Eztxa-Inehcakvj-Worvl syndrome status post ablation 1993, GERD, gastroparesis, vitamin B12 deficiency, history of hematuria, history of brachial plexus lesions, history of subacute bacterial endocarditis prophylaxis candidate presents with palpitations and found to be in rapid A-fib. Patient today when going to bed to sleep noticed heart palpitations. It happens once in a while but then will subside after short duration.. But today they were not subsiding and associated with chest discomfort which prompted patient to come to the ER. No shortness of breath. No dizziness. No headache. No runny nose or sore throat. No cough. No fe vers. Appetite is okay. No nausea. No abdominal pain. Normal bowel and bladder movements. Patient generally active. On presentation heart rates were in 150s and blood pressure was high. Currently resting comfortably. Atrial fibrillation with RVR H/O WPW S/P ablation --ECHO: EF 55 to 60%. Moderate tricuspid regurgitation. Pulmonary artery systolic pressure estimated to be 38 mmHg. Grade 2 diastolic dysfunction. Pulmonary artery systolic pressure estimated to be 38 mmHg. Grade 2 diastolic dysfunction. 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 medications Sliding scale monitor DVT prophylaxis Eliquis CODE STATUS Full code Disposition Home Admission and Anticipated Discharge Date Admission Date: January 19, 2025 Subjective Patient is seen and examined at bedside Chest pain, palpitations resolved Discussed with cardiology today Family at bedside Offers no other complaints today Patient spontaneously converted to sinus Plan to be discharged home today Review of Systems Review of Systems: All systems reviewed & are unremarkable except as noted in Subjective Physical Exam Physical Exam: Physical Exam: Vitals signs as noted above General Appearance:Moderately built and nourished, no apparent distress Head: normocephalic, Atraumatic Eyes: normal inspection, EOMI Neck: supple, Trachea midline Respiratory/Chest: Normal breath sounds, CTA, No accessory muscle use Cardiovascular: S1, S2, No murmur Abdomen/GI:Soft, Non tender, Bowel sounds present Extremities/Musculoskeletal:normal inspection, no edema Neurologic/Psych:AAOX3, grossly no focal neurological deficits Skin: normal color, warm Results & Data Results & Data Vital Signs (Past 12 Hours) Vital Signs Temp Pulse Pulse Resp BP BP Pulse Ox 01/19/25 11:13 36.5 C 74 18 153/96 H 96 01/19/25 08:37 36.5 C 71 18 124/82 95 01/19/25 07:04 67 01/19/25 06:30 74 01/19/25 04:42 36.5 C 78 18 149/83 H 96 01/19/25 04:38 01/19/25 03:44 77 16 117/75 95 01/19/25 03:01 84 16 130/94 94 01/19/25 02:10 140 H 16 124/102 H 97 01/19/25 01:15 140 H 162/113 H 01/19/25 01:02 133 H 01/19/25 01:00 132 H 144/113 H 01/19/25 00:41 152 H 185/121 H O2 Del Method 01/19/25 11:13 Room Air 01/19/25 08:37 Room Air 01/19/25 07:04 01/19/25 06:30 01/19/25 04:42 Room Air 01/19/25 04:38 Room Air 01/19/25 03:44 Room Air 01/19/25 03:01 Room Air 01/19/25 02:10 Room Air 01/19/25 01:15 01/19/25 01:02 01/19/25 01:00 01/19/25 00:41 Laboratory Results Short CBC 01/19/25 01/19/25 Range/Units 00:09 05:29 WBC 9.50 8.26 (4.8-10.8) K/ul Hgb 15.6 13.4 (12.0-16.0) g/dl Hct 46.5 39.9 (37.0-47.0) % Plt Count 297 244 (130-400) K/uL BMP 01/19/25 01/19/25 00:09 05:29 Sodium 140 142 Potassium 4.0 4.0 Chloride 103 109 H Carbon Dioxide 25 27 BUN 19 17 Creatinine 0.98 0.83 Glucose 134 H 144 H Calcium 9.9 9.0 Liver Function 01/19/25 Range/Units 00:09 Total Bilirubin 0.4 (0.2-1.0) mg/dl AST 22 (13-39) U/L ALT 24 (7-52) U/L Alkaline Phosphatase 86 (34-104) U/L Albumin 4.6 (3.4-5.0) gm/dl Urine 01/19/25 Range/Units 00:45 Urine Color Yellow Urine Appearance Clear (Clear) Urine pH 6.5 (4.5-7.5) Ur Specific [place] 1.007 (1.000-1.030) Urine Protein Negative (Negative) Urine Glucose (UA) 2+ H (Negative)
--- NOTE | 2025-01-19 12:58 | Communication Note ---
Date of Service: January 19, 2025 By CMS guidelines, a determination that the admission or continued stay is not medically necessary has been made by a member of the UR committee and a phy sician for this hospital stay, therefore a Code 44 will be completed and the Inpatient admission will be changed to outpatient.
--- NOTE | 2025-01-19 13:00 | Discharge Summary ---
Date of Service January 19, 2025 Admission HPI Per Admitting Provider 75-year-old female with past medical history significant for type 2 diabetes, mixed dyslipidemia, chronic sinusitis, hypertension, Ahfkl-Cmelfmiqy-Btork syndrome status post ablation 1993, GERD, gastroparesis, vitamin B12 deficiency, history of hematuria, history of brachial plexus lesions, history of subacute bacterial endocarditis prophylaxis candidate presents with palpitations and found to be in rapid A-fib. Patient today when going to bed to sleep noticed heart palpitations. It happens once in a while but then will subside after short duration.. But today they were not subsiding and associated with chest discomfort which prompted patient to come to the ER. No shortness of breath. No dizziness. No headache. No runny nose or sore throat. No cough. No fevers. Appetite is okay. No nausea. No abdominal pain. Normal bowel and bladder movements. Patient generally active. On presentation heart rates were in 150s and blood pressure was high. Currently resting comfortably. Past medical history. As mentioned above. Past surgical history. Ablation of heart dysrhythmia in 1993 in [facility]. Cardiac cath. Colonoscopy. EGD with endoscopic ultrasound. Stomach lipoma removed. FNA left and right axilla. Laparoscopic cholecystectomy. Total abdominal hysterectomy with removal of tubes. Social history. . No smoking. Alcohol 2-3 drinks a month. No drug use. Family history. Father had asthma. Diabetes. Mother had diabetes. Heart disorder. Thyroid disorder. Paternal grandfather had childhood diabetes insulin-dependent. Admission Exam Per Admitting Provider General- Not in acute distress Head- atraumatic Eyes- PERRL. ENT- oropharynx clear Neck- supple, no JVD. Lungs- clear to auscultation no wheezing or crackles Heart- irregular rhythm;Tachycardia, no murmur, no gallop. Abdomen- normal bowel sounds, soft, nontender, no distension Extremities- no pretibial edema, no erythema seen. Neuro- alert, oriented PERRL, no facial palsy; no dysarthria; moves extremities Principal Diagnosis Atrial fibrillation with rapid ventricular response Hypertensive urgency Discharge Data Allergies Allergy/AdvReac Type Severity Reaction Status Date / Time Cephalosporins Allergy Unknown KEFLEX Verified 01/19/25 01:26 cephalexin Allergy Rash Verified 01/19/25 01:27 [From Panixine DisperDose] pseudoephedrine AdvReac Mild RAPID HEART Verified 01/19/25 01:26 aspirin [From Percodan] AdvReac Hallucinati Verified 01/19/25 01:27 ng oxycodone [From Percodan] AdvReac Hallucinati Verified 01/19/25 01:27 ng Consultations 01/19/25 01:16 ED Decision to Admit Stat 01/20/25 08:00 Consult Cardiology Routine Procedures Performed Laboratory Results WBC 8.26 K/ul (4.8-10.8) 01/19/25 05:29 RBC 4.39 M/uL (4.20-5.40) 01/19/25 05:29 Hgb 13.4 g/dl (12.0-16.0) 01/19/25 05:29 Hct 39.9 % (37.0-47.0) 01/19/25 05:29 MCV 90.9 fL (80.0-100.0) 01/19/25 05:29 MCH 30.5 pg (25.0-34.0) 01/19/25 05:29 MCHC 33.6 g/dL (32.0-36.0) 01/19/25 05:29 RDW Std Deviation 42.3 fL (36.4-46.3) 01/19/25 05:29 RDW Coeff of Adolfo 12.8 % (11.5-14.5) 01/19/25 05:29 Plt Count 244 K/uL (130-400) 01/19/25 05:29 MPV 10.1 fL (9.4-12.4) 01/19/25 05:29 Immature Gran % (Auto) 0.2 % 01/19/25 05:29 Neut % (Auto) 55.3 % 01/19/25 05:29 Lymph % (Auto) 29.2 % 01/19/25 05:29 Grant % (Auto) 8.6 % 01/19/25 05:29 Eos % (Auto) 6.1 % 01/19/25 05:29 Baso % (Auto) 0.6 % 01/19/25 05:29 Neut # (Auto) 4.57 K/uL (1.40-6.50) 01/19/25 05:29 Lymph # (Auto) 2.41 K/uL (1.20-3.40) 01/19/25 05:29 Grant # (Auto) 0.71 K/uL (0.11-0.59) H 01/19/25 05:29 Eos # (Auto) 0.50 K/uL (0.00-0.50) 01/19/25 05:29 Baso # (Auto) 0.05 K/uL (0.00-0.20) 01/19/25 05:29 Immature Gran # (Auto) 0.02 K/uL (0.01-0.20) 01/19/25 05:29 PT 10.3 Seconds (9.0-12.0) 01/19/25 00:09 INR 0.9 (0.9-1.1) 01/19/25 00:09 APTT 25 Seconds (21-31) 01/19/25 00:09 PTT Ratio 0.9 01/19/25 00:09 Sodium 142 mmol/L (136-145) 01/19/25 05:29 Potassium 4.0 mmol/L (3.5-5.1) 01/19/25 05:29 Chloride 109 mmol/L (98-107) H 01/19/25 05:29 Carbon Dioxide 27 mmol/L (21-32) 01/19/25 05:29 Anion Gap 6 (3-11) 01/19/25 05:29 BUN 17 mg/dl (6-23) 01/19/25 05:29 Creatinine 0.83 mg/dl (0.6-1.2) 01/19/25 05:29 Est Cr Clr Drug Dosing 56.7 ml/min 01/19/25 05:29 eGFR 73.47 01/19/25 05:29 BUN/Creatinine Ratio 20.5 (10-20) H 01/19/25 05:29 Glucose 144 mg/dl (70-99(Fasting)) H 01/19/25 05:29 POC Glucose 151 mg/dl (70-99) H 01/19/25 11:49 Estimat Average Glucose 163 mg/dl 01/19/25 05:29 Hemoglobin A1c 7.3 % (4.5-5.6) H 01/19/25 05:29 Calcium 9.0 mg/dl (8.6-10.3) 01/19/25 05:29 Magnesium 1.7 mg/dl (1.7-2.4) 01/19/25 05:29 Total Bilirubin 0.4 mg/dl (0.2-1.0) 01/19/25 00:09 AST 22 U/L (13-39) 01/19/25 00:09 ALT 24 U/L (7-52) 01/19/25 00:09 Alkaline Phosphatase 86 U/L (34-104) 01/19/25 00:09 Troponin I High Sens 9.3 pg/ml (0-14) 01/19/25 11:21 Total Protein 8.4 gm/dl (6.0-8.3) H 01/19/25 00:09 Albumin 4.6 gm/dl (3.4-5.0) 01/19/25 00:09 Globulin 3.8 gm/dl (2.5-4.0) 01/19/25 00:09 Albumin/Globulin Ratio 1.2 (0.9-2) 01/19/25 00:09 Lipase 44 U/L (11-82) 01/19/25 00:09 TSH 4.823 uIu/ml (0.300-4.500) H 01/19/25 00:09 Free T4 0.86 ng/dl (0.61-1.60) 01/19/25 00:09 Urine Color Yellow 01/19/25 00:45 Urine Appearance Clear (Clear) 01/19/25 00:45 Urine pH 6.5 (4.5-7.5) 01/19/25 00:45 Ur Specific [place] 1.007 (1.000-1.030) 01/19/25 00:45 Urine Protein Negative (Negative) 01/19/25 00:45 Urine Glucose (UA) 2+ (Negative) H 01/19/25 00:45 Urine Ketones Negative (Negative) 01/19/25 00:45 Urine Blood Negative (Negative) 01/19/25 00:45 Urine Nitrite Negative (Negative) 01/19/25 00:45 Urine Bilirubin Negative (Negative) 01/19/25 00:45 Urine Urobilinogen Negative (Negative) 01/19/25 00:45 Ur Leukocyte Esterase Negative (Negative) 01/19/25 00:45 Urine Comment 01/19/25 00:45 Impressions Chest X-Ray 01/19/25 00:10 EXAM: XR chest 1V portable CLINICAL HISTORY: Chest pain, nonspecific. TECHNIQUE: An X-ray image of the chest is obtained in AP projection. COMPARISON: CR dated 01/14/2018. FINDINGS: Pulmonary Parenchyma: Mild peribronchial thickening with slightly increased bronchovascular markings in both lungs, due to infective-bronchitic versus congestive changes, interval new, Clinical and lab correlation suggested. No evidence of consolidation or collapse. No pulmonary nodules are identified. No evidence of pleural effusion or pleural thickening. Heart and Mediastinum: The heart size appears mildly enlarged. No mediastinal widening or masses. No hilar or mediastinal lymphadenopathy. Bony Thorax: Bony thorax appears intact without fractures or deformities. A metallic fixator is seen in the upper thoracic spine. Soft Tissues: Soft tissues overlying the chest wall are unremarkable. Overlying chest leads are seen. IMPRESSION: 1. Mild peribronchial thickening with slightly increased bronchovascular markings in both lungs, due to infective-bronchitic versus congestive changes, interval new, Clinical and lab correlation suggested. 2. No pleural effusion seen. Electronically signed by Donnie Melgar 01-19-2025 01:49 AM Hospital Course (1) Rapid atrial fibrillation: 75-year-old female with past medical history significant for type 2 diabetes, mixed dyslipidemia, chronic sinusitis, hypertension, Dcagp-Hguwaofni-Enztq syndrome status post ablation 1993, GERD, gastroparesis, vitamin B12 deficiency, history of hematuria, history of brachial plexus lesions, history of subacute bacterial endocarditis prophylaxis candidate presents with palpitations and found to be in rapid A-fib. Patient today when going to bed to sleep noticed heart palpitations. It happens once in a while but then will subside after short duration.. But today they were not subsiding and associated with chest discomfort which prompted patient to come to the ER. No shortness of breath. No dizziness. No headache. No runny nose or sore throat. No cough. No fevers. Appetite is okay. No nausea. No abdominal pain. Normal bowel and bladder movements. Patient generally active. On presentation heart rates were in 150s and blood pressure was high. Currently resting comfortably. Atrial fibrillation with RVR H/O WPW S/P ablation --ECHO: EF 55 to 60%. Moderate tricuspid regurgitation. Pulmonary artery systolic pressure estimated to be 38 mmHg. Grade 2 diastolic dysfunction. Pulmonary artery systolic pressure estimated to be 38 mmHg. Grade 2 diastolic dysfunction. 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 medications Sliding scale monitor DVT prophylaxis Eliquis CODE STATUS Full code Disposition Home Total Time Total Time Spent Total Time Spent (In Minutes): 54 minutes Discharge Plan Discharge Items Patient Disposition: Home - Self-Care Reason For Visit: RAPID A FIB Discharge Diagnosis: Atrial fibrillation with rapid ventricular response Hypertensive urgency Condition on Discharge: Fair Activity: Per Instructions section Exercise/Sports: Gradually increase as tolerated Non-emergency contact: Primary Care Provider and Metal Spinner Call non-emergency contact if: you have any medication questions, your symptoms worsen, your pain is concerning for you and you have a fever Follow-up/Referrals: Brian Mcdaniels DO [Metal Spinner] - (The office will call you with a follow up appointment.) Vadim Joya MD [Primary Care Provider] - (Date & Time 01/24/2025 10:00 AM Provider: Vadim Joya DO General Internal Medicine [facility] ) Diet: Heart Healthy Addtl Attending Provider Instructions: --Follow-up with your primary care physician on 01/24/2025 10:00 AM -- Follow-up with your diesel locomotive crane operator as recommended Medication changes: 1)Start taking metoprolol succinate 50 mg twice a day 2)Start taking losartan 50 mg daily (increased from your home dose of 25 mg daily) 3)Start taking apixaban (Eliquis) 5 mg twice a day 4)Stop taking carvedilol 5) start taking magnesium chloride 64 mg twice a day -- Monitor your blood pressure regularly as advised. Discuss with your primary care physician/diesel locomotive crane operator for further medication adjustments as needed. Seek immediate medical attention if your symptoms reoccur or worsen Please review medication list provided on discharge for any medication changes as instructed. Please call if you have any questions or problems. You can reach a [facility] hospitalist on duty at [facility] 24 hours a day by calling [phone] Pending Studies at Discharge: No Stand-Alone Forms: My [facility], Smoking Cessation Medications and DC Order Prescriptions: New Eliquis 5 mg Tablet 5 mg PO BID Qty: 60 2RF metoprolol succinate 50 mg Tablet Extended Release 24 Hr 50 mg PO BID Qty: 60 1RF losartan 50 mg tablet 50 mg PO DAILY Qty: 30 1RF magnesium chloride 64 mg tablet,delayed release (DR/EC) 64 mg PO BID Qty: 60 0RF Continued atorvastatin 20 mg tablet 20 mg PO DAILY Qty: 90 3RF cyanocobalamin (vitamin B-12) 1,000 mcg/mL solution 1,000 mcg IM MONTHLY Jardiance 25 mg tablet 12 mg PO DAILY glimepiride 2 mg tablet 2 mg PO QDB omeprazole 20 mg capsule,delayed release(DR/EC) 20 mg PO QAM bupropion HCl 150 mg tablet extended release 24 hr 150 mg PO QAM metformin 500 mg tablet extended release 24 hr 1,000 mg PO BIDM fluticasone propion-salmeterol [Advair Diskus] 250-50 mcg/dose Blister With Device 1 inh INHALATION BID PRN (Reason: Wheezing) albuterol sulfate [ProAir HFA] 90 mcg/actuation Hfa Aerosol Inhaler 2 puff INHALATION QID PRN (Reason: Shortness Of Breath Or Wheezing) azelastine [Astelin] 137 mcg (0.1 %) [place],Non-Aerosol 2 spray INTRANASAL DAILY Discontinued losartan 25 mg tablet 25 mg PO DAILY carvedilol 25 mg tablet 25 mg PO AMHS Discharge Orders: Discharge Order (Routine); Ordered 01/19/25 Ordered By: Pro Mina/Other Patient Handouts: Managing Type 2 Diabetes Admission Data Admit Date/Time: 01/19/25 01:54 Attending Provider: Pro Reddy Admit Provider: Andrew Luna Primary Care Provider: Vadim Joya Other Providers: Andrew Luna; Brian Mcdaniels
[2025-01-19] MEDS: METOPROLOL SUCC 25MG EXT REL TAB PO ONE (13:01)
[2025-01-19 13:04] VITALS: BP 121/80
--- NOTE | 2025-01-19 13:04 | Communication Note ---
Date of Service: January 19, 2025 By CMS guidelines, a determination that the admission or continued stay is not medically necessary has been made by a member of the Utilization Review committee and a physician for this hospital stay. Therefore, a Code 44 will be completed and the inpatient admission will be changed to outpatient.
[2025-01-19 14:43] VITALS: PULSE 69
[2025-01-19] MEDS ORDERED: METOPROLOL SUCC 50MG EXT REL TAB PO SCH (21:00)
--- NOTE | 2025-01-20 15:20 | Electrocardiogram Report ---
Test Reason : Blood Pressure : */* mmHG Vent. Rate : 69 BPM Atrial Rate : 69 BPM P-R Int : 166 ms QRS Dur : 80 ms QT Int : 406 ms P-R-T Axes : 67 20 46 degrees QTcB Int : 435 ms Normal sinus rhythm Normal ECG When compared with ECG of 19-Jan-2025 00:05, (unconfirmed) Sinus rhythm has replaced Atrial fibrillation Vent. rate has decreased by [address] no longer depressed in Lateral leads Confirmed by Randy Santiago ([id number]) on 01/20/2025 3:19:58 PM Referred By: REFERRED SELF Confirmed By: Randy Santiago
--- NOTE | 2025-01-21 07:10 | Electrocardiogram Report ---
Test Reason : Blood Pressure : */* mmHG Vent. Rate : 157 BPM Atrial Rate : * BPM P-R Int : * ms QRS Dur : 78 ms QT Int : 278 ms P-R-T Axes : * 10 80 degrees QTcB Int : 449 ms Atrial fibrillation with rapid ventricular response Nonspecific ST and T wave abnormality Abnormal ECG When compared with ECG of 14-Jan-2018 14:20, Atrial fibrillation has replaced Sinus rhythm Vent. rate has increased by [address] now depressed in Lateral leads Nonspecific T wave abnormality no longer evident in Anterior leads Confirmed by Randy Santiago ([id number]) on 01/21/2025 7:09:49 AM Referred By: REFERRED SELF Confirmed By: Randy Santiago
== END 2025-01-19 15:29 | disposition home or self-care (01) ==
LOC: ED 23:51 → 4W 01-19 01:54 → INTOOBSV 01-19 01:54 → 4W 01-19 03:44